=== PATIENT | female | born 1975 | race Asian ===

== ENCOUNTER 2020-04-09 14:11 | Emergency (ER) | payer OTHER, SELFPAY ==
[2020-04-09 14:15] VITALS: BP 108/75; PULSE 100; RESP 18; TEMP 36.9; O2SAT 97
--- NOTE | 2020-04-09 14:41 | ED.SKABFB ---
HPI - Skin/Abscess/Foreign Bdy General Chief complaint: Skin/Abscess/Foreign Body Stated complaint: boil on back Time Seen by Provider: 04/09/20 14:29 Source: patient and RN notes reviewed Mode of arrival: ambulatory Limitations: no limitations History of Present Illness HPI narrative: Patient presents today complaining of swelling and possible boil to her left upper back x1 week. Reports it continues to worsen and is very painful. She rates her pain 8/10 and has been using Prid salve without relief. Last episode of the boil/abscess was in May 2019 where she was seen in the ER at [facility]. complaint: abscess/boil Related Data Home Medications Medication Instructions Recorded Confirmed fluoxetine 10 mg PO DAILY 05/10/19 04/09/20 lisinopril 10 mg PO DAILY 05/10/19 04/09/20 valacyclovir 500 mg PO DAILY 05/10/19 04/09/20 amitriptyline 25 mg PO BID 04/09/20 04/09/20 atorvastatin 10 mg PO DAILY 04/09/20 04/09/20 bupropion HCl 300 mg PO DAILY 04/09/20 04/09/20 citalopram 20 mg PO DAILY 04/09/20 04/09/20 losartan 50 mg PO DAILY 04/09/20 04/09/20 montelukast 10 mg PO DAILY 04/09/20 04/09/20 sertraline 50 mg PO DAILY 04/09/20 04/09/20 sumatriptan succinate 100 mg PO USEASDIRECTD 04/09/20 04/09/20 topiramate 25 mg PO DAILY 04/09/20 04/09/20 Allergies Allergy/AdvReac Type Severity Reaction Status Date / Time vitamin B 12 Allergy Hives Uncoded 04/09/20 14:33 Review of Systems Review of Systems: Narrative: CONSTITUTIONAL: Denies body aches, fever, chills, or sweats. EYES: Denies visual changes, redness, or discharge. ENT: Denies rhinorrhea, congestion, sore throat, or otalgia. CARDIOVASCULAR: Denies chest pain, palpitations, or edema. RESPIRATORY: Denies cough or dyspnea. GASTROINTESTINAL: Denies abdominal pain, nausea, vomiting, or diarrhea. GENITOURINARY: Denies dysuria or hematuria. SKIN: Denies rash, itching. + Boil to left upper back MUSCULOSKELETAL: Denies back pain, joint pain, or myalgia. NEUROLOGIC: Denies headache, numbness, tingling, or weakness. PSYCH: Denies depression or anxiety. [facility] Past Medical History Medical History (Updated 04/09/20 @ 14:44 by Kristy Cadena, YONG, ) HTN (hypertension) Hypercholesterolemia Surgical History Surgical History (Updated 05/10/19 @ 15:14 by YONG Abdi) Status post surgical removal of both fallopian tubes Social History Social History (Updated 05/10/19 @ 15:14 by YONG Abdi) Smoking status: Never smoker Alcohol intake: never Substance use: never Comments At time of signature, I have reviewed and agree with nursing past medical, surgical, social and family history unless otherwise noted. Please see nursing chart for further information. There is no relevant family history pertinent to the presenting complaint Exam Narrative: Exam Narrative: GENERAL: Well-appearing, well-nourished, and in no acute distress. HEAD: Normocephalic, atraumatic. EYES: EOMI. No redness or drainage. Conjunctivae normal. ENT: Mucous membranes pink and moist. NECK: Normal AROM. CHEST: No respiratory distress. EXTREMITIES: Normal range of motion. No edema. SKIN: Warm, dry, no rash. Capillary refill normal. Normal skin turgor. 4 cm area of erythema and induration to the left upper back with 1 to 2 mm scab in the center. Tender to palpation. Manually removed scab and expressed pinpoint amount of purulent discharge. Dressed with Band-Aid. NEURO: No focal deficits. Alert and oriented x3. Gait steady. PSYCH: Normal affect. No signs of depression or anxiety. Course Vital Signs Vital signs: Vital Signs Temperature 98.4 F 04/09/20 14:15 Pulse Rate 100 04/09/20 14:15 Respiratory Rate 18 04/09/20 14:15 Blood Pressure 108/75 04/09/20 14:15 Pulse Oximetry 97 04/09/20 14:15 Temperature 98.4 F 04/09/20 14:15 Pulse Rate 100 04/09/20 14:15 Respiratory Rate 18 04/09/20 14:15 Blood Pressure 108/75 04/09
== END 2020-04-09 14:50 | disposition home or self-care (01) ==
PROVIDERS: Emergency Provider Nurse Practitioner; PCP Family Medicine
DX: L03.312 Cellulitis of back [any part except buttock and flank] (principal); I10 Essential (primary) hypertension; E78.00 Pure hypercholesterolemia, unspecified
CPT/HCPCS: 99213; G0463

== ENCOUNTER 2020-05-09 11:05 | Emergency (ER) | payer OTHER, SELFPAY ==
[2020-05-09 11:34] VITALS: BP 110/75; PULSE 65; RESP 20; TEMP 36.6; O2SAT 100
--- NOTE | 2020-05-09 11:52 | ED.GENADULT ---
HPI - General Adult General Chief complaint: Ear Stated complaint: ear pain Source: patient Mode of arrival: ambulatory Limitations: no limitations History of Present Illness HPI narrative: 44 y/o female Presents to the [facility] clinic today with acute complaints of LT ear pain, more bothersome in the past 48 hours. She describes a throbbing and popping sensation. No auditory trauma or loss. No fever, chills. No congestion. Pt reports subtherapeutic relief to OTC remedies. No additional acute c/o upon PE. Related Data Home Medications Medication Instructions Recorded Confirmed valacyclovir 500 mg PO DAILY 05/10/19 05/09/20 amitriptyline 25 mg PO BID 04/09/20 05/09/20 atorvastatin 10 mg PO DAILY 04/09/20 05/09/20 bupropion HCl 300 mg PO DAILY 04/09/20 05/09/20 citalopram 20 mg PO DAILY 04/09/20 05/09/20 losartan 50 mg PO DAILY 04/09/20 05/09/20 topiramate 25 mg PO BID 04/09/20 05/09/20 propranolol 40 mg PO BID 05/09/20 05/09/20 Allergies Allergy/AdvReac Type Severity Reaction Status Date / Time vitamin B 12 Allergy Hives Uncoded 05/09/20 11:43 Review of Systems Review of Systems: Narrative: CONSTITUTIONAL: Denies fever, chills, sweats. EYES: Denies visual changes, redness, discharge. ENT: Denies rhinorrhea, congestion, sore throat. Positive LT otalgia. CARDIOVASCULAR: Denies chest pain, palpitations, edema. RESPIRATORY: Denies dyspnea, wheezing, cough GASTROINTESTINAL: Denies abdominal pain, nausea, vomiting, diarrhea. GENITOURINARY: Denies dysuria, hematuria, abnormal discharge SKIN: Denies rash or itching. MUSCULOSKELETAL: Denies acute back pain, joint pain, or myalgia. NEUROLOGIC: Denies numbness, or focal weakness. PSYCHIATRIC: Denies anxiety or depression. All systems reviewed & are unremarkable except as noted in HPI and below (HPI. ) [facility] Past Medical History Medical History HTN (hypertension) Hypercholesterolemia Surgical History Surgical History Status post surgical removal of both fallopian tubes Social History Social History Smoking status: Never smoker Alcohol intake: never Substance use: never Comments At the time of my signature I agree with nursing past medical history, surgical, social, and family history. There is no relevant family history pertinent to the presenting complaint. Exam Narrative: Exam Narrative: GENERAL: This is a well-nourished, well-developed patient, in no apparent distress. HEAD: normocephalic, atraumatic. EYES: PERRL. Sclera clear/white. Vision is grossly intact. EARS: External ears normal. LT TM bulging and erythematous, without perforation. Positive Tragus manipulation LT. Hearing grossly intact. RT normal. NOSE: External nose normal with no obvious nasal discharge, nares without redness, no rhinorrhea. THROAT: Mucous membranes moist, posterior pharynx clear. NECK: Neck supple, non-tender without lymphadenopathy, masses or thyromegaly. CARDIOVASCULAR: Regular rate and rhythm without murmurs, gallops, or rubs. RESPIRATORY: Clear to auscultation. Breath sounds equal bilaterally. No wheezes, rales, or rhonchi. GASTROINTESTINAL: Abdomen soft, non-tender, nondistended. Bowel sounds are active. No hepato-splenomegaly, or palpable masses. No guarding. SKIN: warm, intact with no suspicious lesions or rash, good texture and turgor. NEURO: awake, alert, and oriented to person, place and time. There were no obvious focal neurologic abnormalities. Steady gait EXTREMITIES: Normal range of motion. No edema. No calf tenderness. Negative Homans sign bilaterally. BACK: Nontender without deformity or crepitance. No flank tenderness. Course Vital Signs Vital signs: Vital Signs Temperature 36.6 C 05/09/20 11:34 Pulse Rate 65 05/09/20 11:34 Respiratory Rate 20 05/09/20 11:34 Blood Press
== END 2020-05-09 12:00 | disposition home or self-care (01) ==
PROVIDERS: Emergency Provider Nurse Practitioner Adult Health; PCP Family Medicine
DX: H66.92 Otitis media, unspecified, left ear (principal); I10 Essential (primary) hypertension; E78.00 Pure hypercholesterolemia, unspecified
CPT/HCPCS: 99213; G0463

== ENCOUNTER 2021-11-02 00:38 | Day surgery (SDC) | payer OTHER, SELFPAY ==
[2021-10-26 09:53] VITALS: BMI 34.4
--- NOTE | 2021-10-26 10:53 | SUR.PREOP ---
Report to the Outpatient Waiting Room, entrance under the green pavilion located off [facility], at time 0800 on date 11/02/21. OR Time: 1000. - You and your visitor will be asked a series of questions to screen for COVID 19 for your protection. - Only one visitor is allowed at this time. - The patient visitor is requested to leave or wait in car when not with patient. - A mask is required within the hospital. Patients may have clear liquids (water, carbonated beverages, clear teas, apple juice) until 3 hours prior to surgery with a maximum of 20 ounces. - No food from midnight until time of surgery - Infants may have breast milk until 4 hours before surgery, infant formula 6 hours prior to surgery. - Children will be allowed to drink immediately following surgery. If applicable, please bring a bottle or sippy cup to assist with drinking. Juice, water, soda, and popsicles are readily available. For infants on formula, please bring formula the day of surgery. Pacifiers are allowed. Take the following medications with a SIP of water the morning of surgery: PROPRANOLOL, BUPROPION, CITALOPRAM Medications to discontinue per physician N/A Date to take last dose N/A Please no make-up, nail kazakh, hairspray, perfume, deodorant, or body powder the day of surgery. No jewelry (including any body piercings) or valuables the day of surgery, leave them at home. Please take a shower or bath the night before, or the morning of, surgery with an antibacterial soap. Wear comfortable, loose fitting clothing. Children are encouraged to wear pajamas. - Jewelry must be removed prior to entering the operating room. Rings and piercings that are not removed may be cut off. - The hospital will not accept responsibility for valuables. - Please leave all valuables, including medications, at home the day of surgery. If you are going home after surgery, a licensed stage driver must drive you home. - NO public transportation without another adult. - We recommend that an adult stay with you for 24 hours following discharge. - We also recommend that you do not drive, make important decision, drink alcoholic beverages, or take any drugs that were not prescribed by your health care provider for at least 24 hours after your discharge time. For Pediatric surgeries, we recommend two adults accompany the child home (only one inside the building at this time). Follow any additional instructions given to you from your surgeon. If you or anyone in your household have experienced Covid symptoms in the past week, please notify your surgeon or the nurse liaison at the phone number below for possible testing. Telephone instructions given to DWIGHT ESTRELLA and asked if any additional questions and then verbalized understanding. Patient advised to call surgeon office or pre surgery nurse liaison [phone] if any additional questions.
[2021-11-02 08:03] VITALS: BP 116/71; PULSE 63; RESP 16; TEMP 36.7; O2SAT 97
[2021-11-02] MEDS: LACTATED RINGERS 1,000 ML 30 ML IV CONT (08:25)
--- NOTE | 2021-11-02 08:28 | WPDANESEPPF ---
Anes - Initial Pre Proc Eval Procedure: Operation Date: 11/02/21 10:00 Proposed Procedures p Hysteroscopy Dilation and Curettage - Leoncio Hammond MD Date/Time: 11/02/21 08:28 Surgeon: Leoncio Hammond MD Pre Op Diagnosis: Menometrorrhagia Patient Data Age: 46 Gender: F Height: 1.68 m Weight: 97.3 kg Allergies Allergy/AdvReac Type Severity Reaction Status Date / Time vitamin B 12 Allergy Intermediate Hives Uncoded 11/02/21 08:13 Home Medications Medication Instructions Recorded Confirmed Type valacyclovir 500 mg tablet 500 mg PO DAILY 05/10/19 11/02/21 History atorvastatin 10 mg tablet 10 mg PO DAILY 04/09/20 11/02/21 History bupropion HCl 300 mg 24 hr tablet, 300 mg PO DAILY 04/09/20 11/02/21 History extended release citalopram 20 mg tablet 20 mg PO DAILY 04/09/20 11/02/21 History propranolol 40 mg tablet 40 mg PO BID 05/09/20 11/02/21 History Patient hx anesthesia problems: none Family hx anesthesia problems: none Results Review: All pre-operative results and documents have been reviewed as part of the pre-operative evaluation. 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 Gender identity (if verbalized by the patient): Female Sexual Orientation (if Verbalized by the Patient): Straight or Heterosexual Spiritual care concerns: No Anes - Eval Final PreProcedure Day of Procedure 11/02/21 08:28 Patient weight: obese Heart: regular rate and rhythm Lungs: clear to auscultation Airway: Mallampati scale class II Neurological: alert and oriented Last oral intake: >/= 8 hours ASA classification: III Anesthetic plan: proceed Anesthesia type and monitoring: general LMA and standard monitoring Results Review: All pre-operative results and documents have been reviewed as part of the pre-operative evaluation. Informed Consent: The patient's anesthetic plan and its attendant risks and benefits were discussed with the patient/family/POA. Questions were solicited and answers provided to the satisfaction of the patient/family/POA.
--- NOTE | 2021-11-02 08:35 | PM.IMHP ---
H&P: HPI History of Present Illness Date/Time: 11/02/21 08:35 46-year-old female presents for evaluation of heavy irregular vaginal bleeding and thickened endometrium found on ultrasound. Was in her normal state of health until approximately 6 months ago when she began to have heavy irregular vaginal bleeding and ultrasound was ordered to evaluate this. Ultrasound revealed essentially normal uterus with endometrium of 15mm. Due to this we need to proceed with hysteroscopy and D&C to determine tissue and then decide definitive course. Chief Complaint: Menometrorrhagia/endometrial hypertrophy. Review of Systems Review of Systems: All systems reviewed & are unremarkable except as noted in HPI and below PMFSH Past Medical History Medical History Anxiety Encounter for screening examination for sexually transmitted disease History of PCR DNA positive for HSV2 HTN (hypertension) Hypercholesterolemia Surgical History Surgical History Status post surgical removal of both fallopian tubes Family History Family History Other Adopted Social History Social History Smoking status: Never smoker Alcohol intake: never Substance use: never Substance use type: does not use Living arrangements: alone Additional living arrangements comments: 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 Gender identity (if verbalized by the patient): Female Sexual Orientation (if Verbalized by the Patient): Straight or Heterosexual Spiritual care concerns: No Meds Home Medications and Allergies Home Medications Medication Instructions Recorded Confirmed Type valacyclovir 500 mg tablet 500 mg PO DAILY 05/10/19 11/02/21 History atorvastatin 10 mg tablet 10 mg PO DAILY 04/09/20 11/02/21 History bupropion HCl 300 mg 24 hr tablet, 300 mg PO DAILY 04/09/20 11/02/21 History extended release citalopram 20 mg tablet 20 mg PO DAILY 04/09/20 11/02/21 History propranolol 40 mg tablet 40 mg PO BID 05/09/20 11/02/21 History Allergies Allergy/AdvReac Type Severity Reaction Status Date / Time vitamin B 12 Allergy Intermediate Hives Uncoded 11/02/21 08:13 Vital Signs Vital Signs - 24 hr 11/02/21 08:03 Temperature 98.1 F Pulse Rate 63 Respiratory Rate 16 Blood Pressure 116/71 Pulse Oximetry 97 Oxygen Delivery Room Air Exam Const: General: cooperative, healthy appearing and comfortable Resp: Effort & Inspection: normal respiratory effort Auscultation: clear to auscultation bilaterally Cardio: Rate: regular rate Rhythm: regular rhythm GI: Inspection: normal to inspection Auscultation: normal bowel sounds : External Female Exam: normal external appearance Speculum Exam - Vagina: normal appearance of the vagina Speculum Exam - Cervix: normal appearance of the cervix Bimanual exam- vagina & uterus: enlarged (8-10 week size mildly tender) Bimanual Exam- Adnexa, other: normal adnexae Assessment and Plan Assessment and plan (1) Menometrorrhagia: Code(s): N92.1 - Excessive and frequent menstruation with irregular cycle Status: Acute Assessment and Plan: Hysteroscopy with uterine curettings (2) Thickened endometrium: Code(s): R93.89 - Abnormal findings on diagnostic imaging of other specified body structures Status: Acute
--- NOTE | 2021-11-02 08:39 | WPDHPUPDATE1 ---
History and Physical Update Update Date/Time: 11/02/21 08:39 History and Physical has been reviewed, including an updated exam of the patient. There are NO changes in the patient's condition. Risks, benefits, and alternatives have been discussed and questions answered. Patient agrees to proceed with procedure.
[2021-11-02] MEDS: KETOROLAC 30 MG/ML VIAL (*BKC) IV PUSH (09:40)
--- NOTE | 2021-11-02 09:43 | W.PM.PROC2 ---
Procedure Note - Detailed Date of Procedure 11/02/21 Pre-op Diagnosis Menometrorrhagia Post-op Diagnosis Same Procedure Performed Hysteroscopy with uterine curettings Surgeon Leoncio Hammond MD Findings Thickened endometrial cavity. Small polyp noted. Description of Procedure Patient prepped in usual manner for this procedure. Cervix dilated to allow the hysteroscope be placed which did reveal findings as noted above. Curettings were obtained and cavity was without abnormality after the procedure. Patient was then sent to recovery room stable condition. Estimated Blood Loss 25 Drains No Packing No Pathology Yes Complications No immediate complications Condition Stable Disposition PACU [facility] Billing Surgery - Charge Forward: Surgery Billing
[2021-11-02 09:48] VITALS: BP 122/68; PULSE 56; RESP 14; O2SAT 96
[2021-11-02 10:15] VITALS: BP 121/83; PULSE 54; RESP 14
[2021-11-02 10:45] VITALS: BP 137/73; PULSE 52; RESP 14
== END 2021-11-02 11:07 | disposition home or self-care (01) ==
PROVIDERS: PCP Family Medicine; Visit Provider Obstetrics & Gynecology
PROC: 0U5B8ZZ Destruction of Endometrium, Via Natural or Artificial Opening Endoscopic (ICD-10-PCS; CPT 58563; principal; 2021-11-02 10:00)
DX: N92.1 Excessive and frequent menstruation with irregular cycle (principal); I10 Essential (primary) hypertension; E78.00 Pure hypercholesterolemia, unspecified; B00.9 Herpesviral infection, unspecified; F41.9 Anxiety disorder, unspecified; E66.9 Obesity, unspecified; Z68.34 Body mass index [BMI] 34.0-34.9, adult
CPT/HCPCS: 58558; 88305; A9270; J1885; J2250; J2704; J3010; J7030; J7120

== ENCOUNTER 2022-03-08 00:11 | Day surgery (SDC) | payer OTHER, SELFPAY ==
[2022-03-01 09:45] VITALS: BMI 34.2
--- NOTE | 2022-03-01 09:59 | PC.NURSE ---
Report to the Outpatient Waiting Room, entrance under the green pavilion located off [facility], at time 0800 on date 03/08/22. OR Time: 1000. Time changes happen often and if your time is changed the preop area will call you the afternoon before. - You and your visitor will be asked to self-screen and do not enter if you have any COVID symptoms. - Only one visitor and NO children visitors are allowed at this time. - The patient visitor is requested to leave or wait in car when not with patient due to restrictions. - A mask is required within the hospital. Patients may have clear liquids (water, carbonated beverages, clear teas, apple juice) until 3 hours prior to surgery with a maximum of 20 ounces 0700. - No food from midnight until time of surgery - Infants may have breast milk until 4 hours before surgery, infant formula 6 hours prior to surgery. - Children will be allowed to drink immediately following surgery. If applicable, please bring a bottle or sippy cup to assist with drinking. Juice, water, soda, and popsicles are readily available. For infants on formula, please bring formula the day of surgery. Pacifiers are allowed. Take the following medications with a SIP of water the morning of surgery: atorvastatin, bupropion, citalopram, propranolol, albuterol sulfate Medications to discontinue per physician ask Dr. Hammond about discontinuing ibuprofen prior to surgery Date to take last dose n/a Please no make-up, nail arabic, hairspray, perfume, deodorant, or body powder the day of surgery. No jewelry (including any body piercings) or valuables the day of surgery, leave them at home. Please take a shower or bath the night before, or the morning of, surgery with an antibacterial soap. Wear comfortable, loose fitting clothing. Children are encouraged to wear pajamas. - Jewelry must be removed prior to entering the operating room. Rings and piercings that are not removed may be cut off. - The hospital will not accept responsibility for valuables. - Please leave all valuables, including medications, at home the day of surgery. If you are going home after surgery, a licensed class a truck driver must drive you home. - NO public transportation without another adult. - We recommend that an adult stay with you for 24 hours following discharge. - We also recommend that you do not drive, make important decision, drink alcoholic beverages, or take any drugs that were not prescribed by your health care provider for at least 24 hours after your discharge time. For Pediatric surgeries, we recommend two adults accompany the child home (only one inside the building at this time). Follow any additional instructions given to you from your surgeon. If you or anyone in your household have experienced Covid symptoms in the past week, please notify your surgeon or the nurse liaison at the phone number below for possible testing. Telephone instructions given to Iraida Winter and asked if any additional questions and then verbalized understanding. Patient advised to call surgeon office or pre surgery nurse liaison [phone] if any additional questions.
--- NOTE | 2022-03-08 07:28 | PM.IMHP ---
H&P: HPI History of Present Illness Date/Time: 03/08/22 07:28 46-year-old female presents with complaints of menstrual cycles 5-7 days with 3-5 days heavy clotting cramping. She has had a hysteroscopy D&C in the last few months was did reveal polyps and they were removed. Since this has occurred she has continued with heavy bleeding and desires further treatment. We have discussed multiple options and she desires to proceed with endometrial ablation. Has had a tubal ligation so this is not necessary. Chief Complaint: Menometrorrhagia Review of Systems Review of Systems: All systems reviewed & are unremarkable except as noted in HPI and below PMFSH Past Medical History Medical History Anxiety Encounter for screening examination for sexually transmitted disease History of PCR DNA positive for HSV2 HTN (hypertension) Hypercholesterolemia Surgical History Surgical History History of hysteroscopy (11/02/21) Hscope D&C Status post surgical removal of both fallopian tubes Family History Family History Other Adopted Social History Social History Smoking status: Never smoker Alcohol intake: never Substance use: never Substance use type: does not use Living arrangements: with roommate(s) Additional living arrangements comments: 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 Gender identity (if verbalized by the patient): Female Sexual Orientation (if Verbalized by the Patient): Straight or Heterosexual Spiritual care concerns: No Meds Home Medications and Allergies Home Medications Medication Instructions Recorded Confirmed Type valacyclovir 500 mg tablet 500 mg PO DAILY PRN herpes 05/10/19 03/01/22 History atorvastatin 10 mg tablet 10 mg PO DAILY 04/09/20 03/01/22 History bupropion HCl 300 mg 24 hr tablet, 300 mg PO DAILY 04/09/20 03/01/22 History extended release citalopram 20 mg tablet 20 mg PO DAILY 04/09/20 03/01/22 History propranolol 40 mg tablet 40 mg PO BID 05/09/20 03/01/22 History ibuprofen 800 mg tablet 800 mg PO TID PRN pain #20 tabs 06/02/22 09/29/22 Rx albuterol sulfate 90 mcg/actuation 2 puff inhalation DAILY 03/01/22 03/01/22 History aerosol inhaler Allergies Allergy/AdvReac Type Severity Reaction Status Date / Time vitamin B 12 Allergy Intermediate Hives Uncoded 03/01/22 09:39 Exam Const: General: cooperative, healthy appearing and comfortable Resp: Effort & Inspection: normal respiratory effort Auscultation: clear to auscultation bilaterally Cardio: Rate: regular rate Rhythm: regular rhythm GI: Inspection: normal to inspection Auscultation: normal bowel sounds : External Female Exam: normal external appearance Speculum Exam - Vagina: normal appearance of the vagina Speculum Exam - Cervix: normal appearance of the cervix Bimanual exam- vagina & uterus: enlarged Bimanual Exam- Adnexa, other: normal adnexae Assessment and Plan Assessment and plan (1) Menometrorrhagia: Code(s): N92.1 - Excessive and frequent menstruation with irregular cycle Status: Acute Assessment and Plan: Proceed with hysteroscopy and endometrial ablation.
--- NOTE | 2022-03-08 07:33 | WPDHPUPDATE1 ---
History and Physical Update Update Date/Time: 03/08/22 07:33 History and Physical has been reviewed, including an updated exam of the patient. There are NO changes in the patient's condition. Risks, benefits, and alternatives have been discussed and questions answered. Patient agrees to proceed with procedure.
[2022-03-08] MEDS: LACTATED RINGERS 1,000 ML 30 ML IV CONT (08:35)
[2022-03-08] MEDS: ACETAMINOPHEN 500 MG TABLET 1000 MG PO (08:35)
[2022-03-08 08:41] VITALS: BP 133/75; PULSE 53; RESP 14; TEMP 36; O2SAT 97
--- NOTE | 2022-03-08 09:14 | WPDANESEPPF ---
Anes - Initial Pre Proc Eval Procedure: Operation Date: 03/08/22 09:30 Proposed Procedures p Hysteroscopy with Addie Endometrial Ablation - Leoncio Hammond MD Date/Time: 03/08/22 09:14 Surgeon: Leoncio Hammond MD Pre Op Diagnosis: menometrorrhagia Patient Data Age: 46 Gender: F Height: 1.68 m Weight: 96.5 kg Last Vital Signs Temp 36.0 C L 03/08/22 08:41 Pulse 53 L 03/08/22 08:41 Resp 14 03/08/22 08:41 BP 133/75 03/08/22 08:41 Pulse Ox 97 03/08/22 08:41 O2 Del Method Room Air 03/08/22 08:41 Allergies Allergy/AdvReac Type Severity Reaction Status Date / Time vitamin B 12 Allergy Intermediate Hives Uncoded 03/08/22 08:35 Home Medications Medication Instructions Recorded Confirmed Type valacyclovir 500 mg tablet 500 mg PO DAILY PRN herpes 05/10/19 03/01/22 History atorvastatin 10 mg tablet 10 mg PO DAILY 04/09/20 03/01/22 History bupropion HCl 300 mg 24 hr tablet, 300 mg PO DAILY 04/09/20 03/01/22 History extended release citalopram 20 mg tablet 20 mg PO DAILY 04/09/20 03/01/22 History propranolol 40 mg tablet 40 mg PO BID 05/09/20 03/01/22 History ibuprofen 800 mg tablet 800 mg PO TID PRN pain #20 tabs 11/02/21 03/01/22 Rx albuterol sulfate 90 mcg/actuation 2 puff inhalation DAILY 03/01/22 03/01/22 History aerosol inhaler Patient hx anesthesia problems: none Family hx anesthesia problems: none Results Review: All pre-operative results and documents have been reviewed as part of the pre-operative evaluation. [facility] Past Medical History Medical History Anxiety Encounter for screening examination for sexually transmitted disease History of PCR DNA positive for HSV2 HTN (hypertension) Hx of migraines Hypercholesterolemia Surgical History Surgical History History of hysteroscopy (11/02/21) Hscope D&C Status post surgical removal of both fallopian tubes Family History Family History Other Adopted Social History Social History Smoking status: Never smoker Alcohol intake: never Substance use: never Substance use type: does not use Living arrangements: with roommate(s) Additional living arrangements comments: 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 Gender identity (if verbalized by the patient): Female Sexual Orientation (if Verbalized by the Patient): Straight or Heterosexual Spiritual care concerns: No Anes - Eval Final PreProcedure Day of Procedure 03/08/22 09:14 Patient weight: obese Heart: regular rate and rhythm Lungs: clear to auscultation Airway: Mallampati scale class II Neurological: alert and oriented Last oral intake: >/= 8 hours ASA classification: III Emergent: no Anesthetic plan: proceed Anesthesia type and monitoring: general GIVS and standard monitoring Results Review: All pre-operative results and documents have been reviewed as part of the pre-operative evaluation. Informed Consent: The patient's anesthetic plan and its attendant risks and benefits were discussed with the patient/family/POA. Questions were solicited and answers provided to the satisfaction of the patient/family/POA.
[2022-03-08] MEDS: ceFAZolin 2 GM/D5W 50 ML 2 GM/50 ML BAG IVPB (09:54)
--- NOTE | 2022-03-08 10:13 | P.OP_ITS ---
Procedure Note - Detailed Date of Procedure 03/08/22 Pre-op Diagnosis menometrorrhagia Post-op Diagnosis Same Procedure Performed Hysteroscopic endometrial ablation Surgeon Leoncio Hammond MD Anesthesia MAC Findings Mildly thickened endometrial cavity Description of Procedure Patient prepped draped usual manner for this procedure. Cervix was dilated to allow the hysteroscope placed which did reveal no significant abnormalities. Endometrial ablation instrument was placed cavity assessment was performed and instrument was activated. At the end of the procedure hysteroscopic exam revealed good destruction throughout. At this point the procedure was cons idered terminated the patient was sent to recovery room in stable condition. Estimated Blood Loss 20 Drains No Packing No Pathology None sent Complications No immediate complications Condition Stable Disposition PACU [facility] Billing Surgery - Charge Forward: Surgery Billing
[2022-03-08 10:18] VITALS: BP 109/64; PULSE 55; RESP 12; O2SAT 97
[2022-03-08 10:35] VITALS: BP 124/71; PULSE 54; RESP 12; O2SAT 12
[2022-03-08 11:05] VITALS: BP 108/65; PULSE 53; RESP 20
[2022-03-08 11:25] VITALS: BP 123/67; PULSE 51; RESP 20
== END 2022-03-08 11:40 | disposition home or self-care (01) ==
PROVIDERS: PCP Family Medicine; Visit Provider Obstetrics & Gynecology
PROC: 0U5B8ZZ Destruction of Endometrium, Via Natural or Artificial Opening Endoscopic (ICD-10-PCS; CPT 58563; principal; 2022-03-08 09:30)
DX: N92.1 Excessive and frequent menstruation with irregular cycle (principal); I10 Essential (primary) hypertension; E78.00 Pure hypercholesterolemia, unspecified
CPT/HCPCS: 58563; A9270; J0690; J1885; J2250; J2704; J3010; J7030; J7120

== ENCOUNTER 2022-06-06 17:15 | Emergency (ER) | payer OTHER, SELFPAY ==
[2022-06-06 17:27] VITALS: BP 138/93; PULSE 65; RESP 18; TEMP 36.8; O2SAT 100
[2022-06-06 17:51] LABS: Basophils Absolute Auto 0.1 K/mm3 (0.0-0.1); Basophils Percent Auto 0.7 % (0.2-1.2); Eosinophils Absolute Auto 0.6 K/mm3 (0-0.3); Eosinophils Percent Auto 5.4 % (0-4.4); Hematocrit 37.5 % (37.0-47.0); Hemoglobin 12.9 g/dL (12.0-15.0); Immature Granulocyte Absolute 0.02 K/mm3 (0.00-0.031); Immature Granulocyte Percent A 0.2 % (0-0.5); Lymphocytes Percent Auto 34.7 % (18.3-44.2); Mean Corpuscular HGB Conc 34.4 g/dl (32-36); Mean Corpuscular Hemoglobin 33.3 pg (26-34); Mean Corpuscular Volume 96.9 fl (80-100); Mean Platelet Volume 9.9 fl (7.4-10.4); Monocytes Absolute Auto 0.6 K/mm3 (0.1-0.6); Neutrophils Absolute Auto 5.4 K/mm3 (1.3-6.7); Platelet Count Result 321 k/mm3 (150-375); Red Blood Count 3.87 M/mm3 (4.2-5.4); White Blood Count 10.1 K/mm3 (4.5-10.0)
[2022-06-06 17:59] LABS: Alanine Aminotransferase 23 U/L (6-35); Albumin Level 4.1 g/dL (3.5-5.1); Alkaline Phosphatase 71 U/L (38-126); Anion Gap 4 mmol/L (8-16); Aspartate Amino Transferase 28 U/L (14-36); Bilirubin,Total 0.7 mg/dL (0.2-1.3); Blood Urea Nitrogen 9 mg/dL (7-17); Calcium 8.8 mg/dL (8.4-10.2); Carbon Dioxide 29 mmol/L (22-30); Chloride 100 mmol/L (98-107); Estimated CRCL calculation 103 ml/min; Estimated Glomerular Filt Rate > 60; Glucose 100 mg/dL (65-110); Lipase 122 U/L (23-300); Potassium 4.2 mmol/L (3.4-5.0); Sodium 133 mmol/L (137-145)
[2022-06-06 18:52] LABS: Add Urine Microscopic? YES; Appearance Urine Clear (Clear); Bilirubin Urine Negative (Negative); Blood Urine Trace-Intact (Negative); Color Urine Yellow (Yellow); Glucose Urine UA Negative (Negative); Ketones Urine Negative (Negative); Leukocyte Esterase Ur Negative LEU/UL (Negative); Nitrate Urine Negative (Negative); Protein Urine Negative (Negative); Specific Grav Ur <= 1.005 (1.001-1.035); Urobilinogen Urine 0.2 mg/dL (<2.0)
[2022-06-06 19:14] LABS: Bacteria Urine Trace /hpf; RBC Urine 0-2 /hpf (0-2); Squamous Epithelial Cell Urine Many /hpf (Few); WBC Urine 0-3 /hpf
--- NOTE | 2022-06-06 20:14 | PC.NURSE ---
pt left before seeing provider. pt A&Ox4 states she is leaving and is tired of waiting. pt ambulated from er without difficulty.
== END 2022-06-07 03:22 | disposition left against medical advice (07) ==
PROVIDERS: Emergency Provider Emergency Medicine; PCP Family Medicine
DX: R10.9 Unspecified abdominal pain (principal)
CPT/HCPCS: 36415; 80053; 81001; 83690; 85025; 99199

== ENCOUNTER 2024-07-14 08:28 | Outpatient (CLI) | payer OTHER, SELFPAY ==
--- NOTE | 2024-07-14 08:30 | ECG_ITS ---
Test Date: 2024-07-14 09:00:28 Measurements Intervals [place] Rate: 67 P: 20 CA: 182 QRS: -3 QRSD: 102 T: -1 QT: 404 QTc: 428 Interpretive Statements SINUS RHYTHM LOW QRS VOLTAGE IN PRECORDIAL LEADS INCOMPLETE RIGHT BUNDLE BRANCH BLOCK BORDERLINE ST-T WAVE ABNORMALITY- ANTEROLAT/INF LEADS BASELINE ARTIFACT- I, III, AVR, AVL, AVF BORDERLINE ECG No previous ECG available for comparison Electronically Signed On 07-14-2024 09:03:53 DRAPERY MAKER by Jeramy Dias D.O.
--- OUTSIDE RECORDS SUMMARY | 2024-07-14 09:15 | XMS_ITS | Clinical Summary ---
Author Organization [facility] Address [address] [place] [address] Phone Care Team Providers Care [place] Name Role Phone Jermaine Yi MD Primary Care Provider Charlene Mares DPM Unavailable [phone] Allergies Active Allergy Reactions Criticality Noted Date Comments Folic Acid-Vit B6-Vit B12 Hives 12/08/2018 Latex Hives 04/29/2023 Medications meclizine (ANTIVERT) 25 MG Tablet Take 25 mg by mouth 3 times daily as needed. 8 Active valACYclovir (VALTREX) 500 MG Tablet Take 500 mg by mouth as needed. 9 Active diclofenac (CATAFLAM) 50 MG Tablet Take 50 mg by mouth 2 times daily. Active Hydrocortisone Piyush-Pramoxine (ANALPRAM-HC) 1-1 % Cream 1 Applicator by Rectal route every 12 hours. 1 Tube 9 Active polyethylene glycol (MIRALAX) Powder Take 17 g by mouth daily. 17 g = 1 scoop. Dissolve in 4 -8 oz of water or other liquid. 1 Bottle 9 Active cyclobenzaprine (FLEXERIL) 10 MG Tablet Take 0.5 Tabs by mouth 3 times daily as needed for Muscle spasms. 15 Tab 9 Active atorvastatin (LIPITOR) 10 MG Tablet Take 10 mg by mouth daily. 3 Active buPROPion (WELLBUTRIN) 300 MG TABLET SR 24 HR XL tablet TAKE 1 TABLET BY MOUTH EVERY DAY IN THE MORNING 3 Active propranolol (INDERAL) 40 MG Tablet Take 40 mg by mouth 2 times daily. Taking only 1 tablet daily due to low BP 3 Active citalopram (CeleXA) 20 MG Tablet Take 20 mg by mouth nightly. Active traZODone (DESYREL) 25 mg Tablet Take 25 mg by mouth nightly. Active HYDROcodone-piyush taminophen (NORCO) 10-325 MG TabletIndicatio ns:Bone tumor Take 1 Tablet by mouth every 4 hours as needed for Moderate or more severe pain. 40 Tablet 3 Active polyethylene glycol (MiraLax) 17 g Pack Take 1 Packet by mouth daily. Dissolve in 4-8 oz of liquid. 90 Packet 3 Active Hydrocortisone, Perianal, (Anusol-HC) 2.5 % Cream Apply daily. Apply to rectum as directed. 28 g 3 Active Active Problems Problem Noted Date Diagnosed Date Chronic midline low back pain without sciatica 0 12/08/2018 Numbness of left lower extremity 12/08/2018 Lumbar facet arthropathy 12/08/2018 Encounters Date Type Department Care Team Description 05/20/2024 Telephone [facility] - G[facility]enter[facility] [address] [place] [address] Victorina Rendon APRN, MALT ROASTER from Last 3 Months Immunizations Immunization Administration Dates Next Due TB Skin Test 10/21/2021 Family History Relation Name Status Comments Father Other Mother Other Social History Tobacco Use Types Packs/Day Years Used Date Smoking Tobacco: Never Smokeless Tobacco: Never Alcohol Use Standard Drinks/Week Comments Not Currently 0 (1 standard drink = 0.6 oz pur e alcohol) AUDIT-C Answer Date Recorded Frequency of Alcohol Consumption Never 03/09/2019 Average Number of Drinks Not on file 019 Frequency of Binge Drinking Not on file 12/2018 Comments No Sex and Gender Information Value Date Recorded Sex Assigned at Female 04/29/2023 9:17 PM CONTRACT NEGOTIATION SPECIALIST Legal Sex Female 9:46 PM CDT Gender Identity Female 04/29/2023 9:17 PM CONTRACT NEGOTIATION SPECIALIST Sexual Orientation Not on file Last Filed Vital Signs Vital Sign Reading Time Taken Comments Blood Pressure 140/89 04/29/2023 10:45 PM CONTRACT NEGOTIATION SPECIALIST Pulse 72 04/29/2023 10:45 PM CONTRACT NEGOTIATION SPECIALIST Temperature 36.9 C (98.5 F) 04/29/2023 7:16 PM CONTRACT NEGOTIATION SPECIALIST Respiratory Rate 18 04/29/2023 10:45 PM CONTRACT NEGOTIATION SPECIALIST Oxygen Saturation 99% 04/29/2023 10:45 PM CONTRACT NEGOTIATION SPECIALIST Inhaled Oxygen Concentration - - Weight 93 kg (205 lb) 04/29/2023 7:16 PM CONTRACT NEGOTIATION SPECIALIST Height 167.6 cm (5' 6 ) 04/29/2023 7:16 PM CONTRACT NEGOTIATION SPECIALIST Body Mass Index 33.09 04/29/2023 7:16 PM CONTRACT NEGOTIATION SPECIALIST Plan of Treatment Health Maintenance Due Date Last Done Comments Hepatitis C Virus (HCV) Screening 1977 Pap Smear 1998 Cervical Cancer Screening (CCS) 2007 HPV/Cotest 2007 Hepatitis B Immunization (2 of 3 - 19+ 3-dose series) 02/26/2012 01/29/2012 Discussion re Starting/Frequency of Mammograms 2017 Colonoscopy 2022 Colorectal Cancer Screening 2022 Influenza Immunization (#1) 02/02/20240 08/2022, 05/08/2022, 05/16/2021, Additional history exists SARS-COV-2 Immunization ( season) 2024 12/18/2020, 11/27/2020 Respiratory Syncytial Virus (RSV) Immunization (Adult) (1 - 1-dose 75+ series) 2052 DTaP/Tdap/Td Immunization Discontinued 05/30/2020 TdaP Immunization Completed 05/30/2020 Meningococcal Immunization (ACWY) Aged Out No longer eligible based on patient's age to complete this topic Pneumococcal Immunization Combined Aged Out No longer eligible based on patient's age to complete this topic Rotavirus Immunization Aged Out No lo nger eligible based on patient's age to complete this topic Medical Devices Implanted Type Area Technical Marketing Consultant Device Identifier Shelf Expiration Date Model / Serial / Lot Graft Bone Canc 30ml 4-10mm Freeze Dried Chips - [id number] Implanted:Qty: 1 on 02/19/2023 by Charlene Mares DPM at [facility] IMPLANT Left: Ankle [employer] 03/24/2027 [id number] / [id number] / [id number] Insurance MEDICAID [employer] Care Teams [place] Relationship Specialty Start Date End Date Jermaine Yi MD [address] [place] [address] [place] [address] PCP - General Internal Medicine 08/07/22 Charlene Mares DPM [address] [place] [address] [place] [address] Consulting Physician Podiatry 09/18/22
--- OUTSIDE RECORDS SUMMARY | 2024-07-14 09:15 | XMS_ITS | Referral Summary ---
Author Organization [facility] Address [address] [place] [address] Care Team Providers Care Duct Maker Name Role Phone Emanuel Sales MD Primary Care Provider [phone] Source Comments [facility],non-owned Affiliates and Associated Physician Practices is amultwooster community hospitale site organization consisting of ambulatory clinics and hospital sitesin [place], [place], [place] and [place]. This disclosure is being madepursuant to the Care Everywhere program and may not contain all information available regarding this patient. Last updated 18.[facility] Social History Tobacco Use Types Packs/Day Years Used Date Smoking Tobacco: Never Assessed Sex and Gender Information Value Date Recorded Sex Assigned at Not on file Gender Identity Not on file Sexual Orientation Not on file Plan of Treatment Not on file Care Teams Duct Maker Relationship Specialty Start Date End Date Emanuel Sales MD [address] [facility] [place] [address] PCP - General 11/06/21
--- OUTSIDE RECORDS SUMMARY | 2024-07-14 09:15 | XMS_ITS | Data Portability ---
Author Organization [facility], [address] [facility] ([place]) Address [address] 4th [place] [address] Care Team Providers Care Clinical Application Consultant Name Role Phone ZULEMA JEREZ Laser Specialist Assessment Encounter Date Assessment Date Assessment LastModified by Organization Details LastModified Time 11/28/2023 11/28/2023 Iraida is a pleasant 48-year-old female with a history of allergic rhinitis, anxiety and depression, insomnia, migraine headaches, hyperlipidemia and hypertension who has been referred for colon cancer screening. *Colon cancer screening -she is in agreement to proceed with screening colonoscopy. COLON CANCER SCREENING The patient is average risk for colorectal cancer screening has no GI complaints including unintentional weight loss, anemia, fevers, chills, nausea, vomiting, chest pain, shortness of breath, , GI bleeding including melena or hematochezia. The patient has no personal or family history of inflammatory bowel disease or GI malignancy. The patient has no significant cardiopulmonary disease to preclude safely undergoing anesthesia for the upcoming colonoscopy. The indications, risks, possible complications and alternatives of colonoscopy with possible biopsies and polypectomy were explained to the patient in non-technical medical terms. The risks include but are not limited to bleeding, intestinal perforation, infection (including endoscope induced infection), drug reaction, phlebitis, aspiration pneumonia, delayed post polypectomy or biopsy bleeding, missed lesions, incomplete resection of polyps requiring repeat endoscopy, and remote risk of catastrophic events including cardiovascular or pulmonary collapse, stroke and . Rarely, blood transfusions or surgery may be required to treat these conditions. The patient also understands that if large polyps are removed, there is potential bleeding risk and residual/recurrent polyp risk. All risks may be increased if patient uses steroids or has significant underlying diseases. The patient indicates understanding these risks and agrees to proceed with the procedure. hey Not available 11/28/2023 17:34:45 Plan of Treatment Reminders Order Date Submit Date Provider Last Modified By Organization Details Last Modified Time Details Appointments New Patient Visit 30.NEW 2024 01:00P M Dr. Raquel Paris Not available Not available Not available Lab None recorded . Referral None recorded . Procedures None recorded . Surgeries None recorded . Imaging None recorded . Medication Orders None recorded . Patient TargetsNo targets recorded. Patient InstructionsNo instructions recorded. Reason for Referral None Reported. Results Created Date Observation Date Name Description Value Unit Range Abnormal Flag Note LastModifiedBy Organization Detail LastModifiedTime 01/17/20 24 01/17/2024 SURGI JOSE PATHO LOGY spf Perfo rmed at: [facility] Order ing Provi mp: Shust er, Dmitr y Patie nt Name: FAYE PORTER beverly #: [id number] /A ge/Ge nder: 1975 (Age: 48) / F Proce dure Date: 2023 SP ECIME N(S) RECEI IRA * A:Rec wilmer, biops ies FI NAL PATHO LOGIC DIAGN OSIS* A. Rectu m, biops ies: - Focal activ e colit is, see comme nt Comme nt: Colon biops y shows focal nonsp ecifi c acute infla mmati on. No granu paul are ident ified . No signi fican t archi tectu ral disto rtion is prese nt. There is no evide nce of dyspl rosalinda or malig georgina . Diffe renti al diagn osis inclu mayi bowel prepa ratio n, infec tious /self limit ed colit is, drug react ion, diver ticul itis, ische chico and other s. Clini jose corre latio n is sugge sted. EL ECTRO NICAL LY VERIF IED BY VICTORINA ANG MD 2023 14:26 CL INICA L HISTO RY Colon cance r scree cielo GR OSS DESCR IPTIO N The speci men conta iner( s) and requi sitio n have the same patie nt name. Recei ira in forma rohan label ed A, recta l biops ies are three mcgee soft tissu es rangi ng from 0.2 to 0.4 cm in great est dimen beverly which are entir teodoro submi tted in one casse tte. The tissu e is proce ssed as forma rohan-f ixed paraf fin-e mbedd ed secti ons. ct 24 END OF REPOR T Not Available Ut Only - [facility] [address], [address], 01/20/2024 15:27:00 12/17/19 24 12/03/2023 MAMMO , scree cielo, digit al, bilat eral [address] [address] Teleph one [phone] Name: Pablo Hayes rdTatianna er [id number] am Date: 2023 Age: 48Phys ician: Tiffani, YONG, Daysi a : 1975Ex aminat ion: MAMM BILATE RAL DIGITA L SCREEN ING EXAM: MAMM BILATE RAL DIGITA L SCREEN ING, MAMM SCREEN ING TOMOSY NTHESI S ACCESS ION: [id number], [id number] EXAM DATE: 12/03/19 24 11:45 AM HISTOR Y: Screen ing. COMPAR ISA: Prior studie s dating back to 2022. DENSIT Y: There are scatte red areas of fibrog landul ar densit y. FINDIN GS: 2D digita l compos ite views as well as 3D digita l tomosy nthesi s views were perfor med. There are no suspic ious masses , calcif icatio ns, or other findin gs within either breast . There has been no signif icant interv al change . IMPRES BEVERLY: There is no mammog raphic eviden ce of malign delbert. ASSESS MENT: BI-RAD S 1: Negati ve. RECOMM ENDATI ON: 1. Screen ing Mammog mary bilate ral in 1 year COMMEN TS: The patien t will be entere d into an automa thomas remind er system for a screen ing mammog mary in 1 year. The patien t has been or will be contac thomas with the result s of this exam. Electr onical ly signed in Cornejo cribe by: PREETI Vargas MD on:12/01 2:51 PM cc: Page PAGE 1 of [facility] ES 1 INTERFACE Sc Only - Sc Radiology [address] [place] [address], [id number], 12/17/2023 15:54:54 12/18/19 24 07/19/2022 MAMMO , scree cielo, tomos ynthe sis, bilat eral No observ ation record ed. [email or web address] Not Available 12/01 16:06:37 06/22/19 25 06/22/2024 , [place] [address] Teleph one [phone] Name: Tatianna Shah 1478 Exam Date: 2024 Age: 48 Physic adalid: Lindsay cho MD, Leoncio : < > Examin ation: US PELVIC TRANSA BDOMIN AL AND TRANSV AGINAL EXAMIN ATION: TRANSA BDOMIN AL AND TRANSV AGINAL PELVIC SONOGR AM HISTOR Y: Prolon ged and irregu lar bleedi ng for severa l months post ablati on. Histor y of ablati on three years ago. COMPAR ISA: None. FINDIN GS: Uterus : The uterus is anteve rted and has a length of 9.5 cm, AP dimens ion of 5.4 cm, and transv erse dimens ion of 5.3 cm. The myomet rium is hetero geneou s with multip le echoge neeru areas which can be seen with adenom yosis. The endome trium measur es 15 mm in thickn ess. There are no uterin e fibroi ds. Right ovary: The right ovary measur es 4.8 x 1.8 x 2.3cm. There is a 2.5 x 2.0 x 2.4 cm cyst on the right ovary. There are normal spectr al Dopple r wavefo cody. Left ovary: The left ovary is not visual ized transa bdomin ally or transv aginal ly. No left adnexa l mass. No free fluid. IMPRES BEVERLY: 1. Thicke devora endome trium measur ing 15 mm. 2. Hetero geneou s appear ance of the myomet rium sugges tive of adenom yosis. 3. 2.5 cm cyst on the right ovary. 4. Left ovary not visual ized. Electr onical ly signed in Cornejo cribe by: AURORA Fitch MD on:06/04 11:25 AM cc: Page PAGE 1 of [facility] ES 1 rholck Sc Only - Sc Radiology [address] [place] [address], [id number], 06/22/2024 12:56:26 06/22/19 25 06/22/2024 US, [place] [address] Teleph one [phone] Name: Tatianna Shah [id number] Exam Date: 2024 Age: 48 Physic adalid: Lindsay cho MD, Leoncio : < > Examin ation: US PELVIC TRANSA BDOMIN AL AND TRANSV AGINAL EXAMIN ATION: TRANSA BDOMIN AL AND TRANSV AGINAL PELVIC SONOGR AM HISTOR Y: Prolon ged and irregu lar bleedi ng for severa l months post ablati on. Histor y of ablati on three years ago. COMPAR ISA: None. FINDIN GS: Uterus : The uterus is anteve rted and has a length of 9.5 cm, AP dimens ion of 5.4 cm, and transv erse dimens ion of 5.3 cm. The myomet rium is hetero geneou s with multip le echoge neeru areas which can be seen with adenom yosis. The endome trium measur es 15 mm in thickn ess. There are no uterin e fibroi ds. Right ovary: The right ovary measur es 4.8 x 1.8 x 2.3cm. There is a 2.5 x 2.0 x 2.4 cm cyst on the right ovary. There are normal spectr al Dopple r wavefo cody. Left ovary: The left ovary is not visual ized transa bdomin ally or transv aginal ly. No left adnexa l mass. No free fluid. IMPRES BEVERLY: 1. Thicke devora endome trium measur ing 15 mm. 2. Hetero geneou s appear ance of the myomet rium sugges tive of adenom yosis. 3. 2.5 cm cyst on the right ovary. 4. Left ovary not visual ized. Electr onical ly signed in Cornejo cribe by: AURORA Fitch MD on:06/04 11:25 AM cc: Page PAGE 1 of [facility] [[email or web address]] ES 1 rholck Sc Only - Sc Radiology [address] [place] [address], [id number], 06/22/2024 12:56:26 Result Notes None recorded. 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 Procedures Surgical History None recorded. Imaging Results Imaging Date Name Status LastModified by Organization Details LastModified Time 12/03/2023 MAMMO, screening, digital, bilateral completed INTERFACE Sc Only - Sc Radiology [address] [place] [address], [id number], 12/17/2023 15:54:54 07/19/2022 MAMMO, screening, tomosynthesis, bilateral completed [email or web address] Information not available 12/18/2023 16:06:37 06/22/2024 US, pelvis completed rholck Sc Only - Sc Radiology [address] [place] [address], [id number], 06/22/2024 12:56:26 06/22/2024 US, transvaginal completed rholck Ut Only - Ut Radiology [address] [place] [address], [id number], 06/22/2024 12:56:26 Procedure Notes None recorded. Medical Equipment None Reported. Allergies Allergen ID Allergen Name Allergen Category Reaction Reaction Severity Criticality Documentation Date Start Date Code Code System Note Provider Name and Address Organization Details Recorded Time [id number] vitamin B12 medicatio n hives Not available low 11/28/2023 96685 RxNorm Not Available Not Available Not Available Medications Name Sig Start Date Stop Date Status Note LastModified by Organization Details LastModified Time cetirizine 10 mg tablet Take 1 tablet every day by oral route. active Not Available Not Available No t Available atorvastatin active Not Available Not Available Not Available citalopram active Not Available Not Av ailable Not Available hydrochlorothiaz faviola active Not Available Not Available Not Available trazodone active Not Available Not Ruth ilable Not Available bupropion HCl active Not Available Not Available Not Available Qulipta active Not Available Not Avail able Not Available Vitals Date Recorded Heart rate Oxygen saturation Oxygen saturation in Arterial blood by Pulse oximetry Systolic blood pressure Diastolic blood pressure Provider Name and Address Organization Details Last Updated DateTime 4 72 /min 100 % 100 % 110 mm[Hg] 60 mm[Hg] Cornelia Duarte, FORENSIC SCIENTIST, LOOM DOFFER [address] [place] [address], [phone] , [facility] 4 16:54:19 Social History Question Answer Notes LastModified by Organizat ion Details LastModified Time What Is Your Level Of Alcohol Consumption? None hey Information not available 11/28/2023 Do You Use Any Illicit Or Recreational Drugs? No hey Information not available 11/28/2023 Sex: Unknown Functional Status None recorded. Mental Status None recorded. Family History Nothing Reported. Medical History No medical history recorded. Gynecological HistoryNo gynecological history recorded. Obstetrics History GPAL:G 0 P 0 0 0 0 Past Encounters Encounter ID Performer Location Encounter Start Date Encounter Closed Date Diagnosis/Indication Diagnosis SNOMED-CT Code Diagnosis ICD10 Code Diagnosis Note [id number] Zulema Jerez MD [facility] ([place]) [address] [facility],2nd [place] [address] 11/28/2023 16:41:05 11/28/2023 17:38:22 Health Concerns Section Related Observation LastModified by Organization Detai ls LastModified Time None Recorded Concern Status LastModified by Organization Details LastModified Time None Recorded Advance Directives Directive None Recorded Payers Encounter Date Sequence Insurance Name Policy Number Policy Senior Covered Member ID Senior Member ID Guarantor Name 11/28/2023 2 [facility] (MEDICARE REPLACEMENT/ ADVANTAGE - HMO) Iraida Cameronford [id number] Iraida Shah Notes Date Note Type Note Provider Name and Address Organization Details Recorded Time 11/28/2023 text/html Iraida is a pleasant 48-year-old female with a history of allergic rhinitis, anxiety and depression, insomnia, migraine headaches, hyperlipidemia and hypertension who has been referred for colon cancer screening.She is currently without GI complaints. She has had no abdominal pain, cramping, diarrhea, constipation, black stools or rectal bleeding. She reports no changes in her appetite or weight and no fever. Cornelia Duarte, FORENSIC SCIENTIST, LOOM DOFFER [address] [place] [address], [phone], [facility] 11/28/2023 17:37:05 OBGyn Episode No OBEpisode recorded.
--- OUTSIDE RECORDS SUMMARY | 2024-07-14 09:15 | XMS_ITS | Clinical Summary ---
Author Organization [facility] Address [address] [place] [address] Care Team Providers Care Professor/Nurse Anesthetist Name Role Phone Emanuel Sales MD Primary Care Provider Source Comments [facility],non-owned Affiliates and Associated Physician Practices is amultiple site organization consisting of ambulatory clinics and hospital sitesin [place], [place], [place] and [place]. This disclosure is being madepursuant to the Care Everywhere program and may not contain all information available regarding this patient. Last updated 18.[facility] Social History Tobacco Use Types Packs/Day Years Used Date Smoking Tobacco: Never Assessed Sex and Gender Information Value Date Recorded Sex Assigned at Not on file Gender Identity Not on file Sexual Orientation Not on file Plan of Treatment Health Maintenance Due Date Last Done Comments COLOGUARD (AGES 45-75) - COL ON CA SCREENING 1977 COLON MONITORING 1977 COLONOSCOPY - COLON CA SCREENING 1977 CT COLONOGRAPHY - COLON CA SCREENING 1977 Colorectal Cancer Screening 1977 FIT - COLON CA SCREENING 1977 FLEX SIG - COLON CA SCREENING 1977 LIPID TESTING 1975 MAMMOGRAM 1977 PAP SMEAR 1977 HIV SCREENING 1992 HEPATITIS C SCREENING 07/09/1995 DTAP/TDAP/TD VACCINES (1 - Tdap) 1996 HEPATITIS B VACCINE (1 of 3 - 19+ 3-dose series) 1996 COVID-19 VACCINE ( - 2023-2 5 season) 2024 INFLUENZA VACCINE (#1) 2024 DEPRESSION SCREENING 06/03/2024 ZOSTER VACCINE (1 of 2) 2027 HIB VACCINE Aged Out No longer eligi ble based on patient's age to complete this topic HPV VACCINE Aged Out No longer eligi ble based on patient's age to complete this topic MENINGOCOCCAL (Group B) VACCINE Aged Out No longer eligible based on patient's age to complete this topic MENINGOCOCCAL VACCINE Aged Out No dale douglas eligible based on patient's age to complete this topic PNEUMOCOCCAL VACCINE Aged Out No long er eligible based on patient's age to complete this topic Care Teams Professor/Nurse Anesthetist Relationship Specialty Start Date End Date Emanuel Sales MD [address] [place], [place] [phone] PCP - General 11/06/21
--- OUTSIDE RECORDS SUMMARY | 2024-07-14 09:15 | XMS_ITS | Patient Health Summary ---
Author Organization [facility] Address [address] [facility] [place] [address] Care Team Providers Care Guide Travel Name Role Phone Emanuel Sales MD Primary Care Provider [phone] Note from [facility],non-owned Affiliates and Associated Physician Practices is amultiple site organization consisting of ambulatory clinics and hospital sitesin [place], [place], [place] and [place]. This disclosure is being madepursuant to the Care Everywhere program and may not contain all information available regarding this patient. Last updated 18.[facility] Social History Tobacco Use Types Packs/Day Years Used Date Smoking Tobacco: Never Assessed Sex and Gender Information Value Date Recorded Sex Assigned at Not on file Gender Identity Not on file Sexual Orientation Not on file Care Teams Guide Travel Relationship Specialty Start Date End Date Emanuel Sales MD [address] [phone] PCP - General 11/06/21
[2024-07-14 09:34] LABS: Hematocrit 41.2 % (37.0-47.0); Hemoglobin 13.9 g/dL (12.0-15.0); Mean Corpuscular HGB Conc 33.7 g/dl (32-36); Mean Corpuscular Hemoglobin 33.5 pg (26-34); Mean Corpuscular Volume 99.3 fl (80-100); Mean Platelet Volume 9.5 fl (7.4-10.4); Platelet Count Result 298 k/mm3 (150-375); Red Blood Count 4.15 M/mm3 (4.2-5.4); Red Cell Distribution Width 12.8 % (11.5-14.5); White Blood Count 7.7 K/mm3 (4.5-10.0)
[2024-07-14 09:50] LABS: Anion Gap 11 mmol/L (4-12); Blood Urea Nitrogen 12 mg/dL (7-17); Calcium 9.3 mg/dL (8.4-10.2); Carbon Dioxide 27 mmol/L (22-30); Chloride 102 mmol/L (98-107); Estimated Glomerular Filt Rate > 60; Glucose 92 mg/dL (65-110); Potassium 3.6 mmol/L (3.4-5.0); Sodium 140 mmol/L (137-145)
== END 2024-07-14 08:29 | disposition home or self-care (01) ==
PROVIDERS: Anesthesiology; Visit Provider Obstetrics & Gynecology
DX: Z01.818 Encounter for other preprocedural examination (principal); N99.85 Post endometrial ablation syndrome; E78.00 Pure hypercholesterolemia, unspecified; T50.2X5A Adverse effect of carbonic-anhydrase inhibitors, benzothiadiazides and other diuretics, initial encounter
CPT/HCPCS: 36415; 80048; 85027; 86850; 86900; 86901; 93005

== ENCOUNTER 2024-07-23 00:26 | Day surgery (SDC) | payer OTHER, SELFPAY ==
[2024-07-09 12:28] VITALS: BMI 29.5
--- NOTE | 2024-07-09 12:39 | PC.NURSE ---
Report to the Outpatient Waiting Room, entrance under the green pavilion located off [facility], at time 07:30a.m. on date 07/23/2024. Planned Procedure Time: 9:30a.m.? Time changes happen often and if your time is changed the preop area will call you the afternoon before. - You and your visitor will be asked to self-screen and do not enter if you have any COVID symptoms. Please call surgeon if you need to reschedule. - A mask is optional within the hospital at this time. Patients may have clear liquids (water, carbonated beverages, clear teas, apple juice) until 3 hours prior to surgery with a maximum of 20 ounces. - No food from midnight until time of surgery and no smoking, or chewing tobacco (or any form of nicotine). No chewing gum, candy or mints. - Infants may have breast milk until 4 hours before surgery, infant formula 6 hours prior to surgery. - Children will be allowed to drink immediately following surgery.? If applicable, please bring a bottle or sippy cup to assist with drinking. Juice, water, soda, and popsicles are readily available.? For infants on formula, please bring formula the day of surgery.? Pacifiers are allowed. Take only the following medications with a SIP of water on the morning of surgery: bupropion DO NOT STOP ANY OF YOUR OTHER PRESCRIPTION MEDICATIONS PRIOR TO SURGERY EXCEPT THE FOLLOWING Hold all vitamins and supplements for 3 days per anesthesiologist. Medications to discontinue per physician N/A Date to take last dose N/A Please no make-up, nail kuwaiti, hairspray, perfume, deodorant, or body powder the day of surgery.? No jewelry (including any body piercings) or valuables the day of surgery, leave them at home.? Please take a shower or bath the night before, or the morning of, surgery with an antibacterial soap.? Wear comfortable, loose fitting clothing.? Children are encouraged to wear pajamas. - Jewelry must be removed prior to entering the operating room.? Rings and piercings that are not removed may be cut off. - The hospital will not accept responsibility for valuables.? - Please leave all valuables, including medications, at home the day of surgery. If you are going home after surgery, a licensed gravel truck driver must drive you home.? - NO public transportation without another adult if you receive anesthesia. - We recommend that an adult stay with you for 24 hours following discharge. - We also recommend that you do not drive, make important decision, drink alcoholic beverages, or take any drugs that were not prescribed by your health care provider for at least 24 hours after your discharge time. For Pediatric surgeries, we recommend two adults accompany the child home. Follow any additional instructions given to you from your surgeon. Telephone instructions given to Iraida Shah and asked if any additional questions and then verbalized understanding. Patient advised to call surgeon office or pre surgery nurse liaison [phone] if any additional questions.
--- NOTE | 2024-07-21 15:12 | P.HP_ITS ---
H&P: HPI History of Present Illness Date/Time: 07/21/24 15:12 48-year-old female presents with complaints of heavy vaginal bleeding. Underwent endometrial ablation approximately 2 years ago which worked nicely for her, though over the past year has been increasing in amount and duration. She is needing to wear a liner almost every day and changes multiple times every day. Denies any other significant gynecologic symptoms. Ultrasound was performed which revealed enlarged uterus at 9-10 cm with findings consistent with adenomyosis. She has undergone multiple hysteroscopy with D and C's including most recent with the ablation in 2021. Polyps were found at that time. Also is status post fallopian tube removal for bilateral ectopic pregnancies. Chief Complaint: Post endometrial ablation syndrome Review of Systems Review of Systems: All systems reviewed & are unremarkable except as noted in HPI and below PMFSH Past Medical History Medical History Screening mammogram, encounter for Hx of migraines Encounter for screening examination for sexually transmitted disease Anxiety History of PCR DNA positive for HSV2 Hypercholesterolemia HTN (hypertension) Surgical History Surgical History History of hysteroscopy (03/08/22) hscope D&C / endometrial ablation History of hysteroscopy (11/02/21) Hscope D&C Status post surgical removal of both fallopian tubes Family History Family History Other Adopted Social History Social History Smoking status: Never smoker Alcohol intake: never Substance use: never Substance use type: does not use Do You Feel Safe in your Home?: Yes Lack of Transportation: No Lack of Food: Never True Current Housing: I Have Housing Concerned About Future Housing: No Difficulty Paying Gas/Electric Bills: No Difficulty Paying for Meds: No Currently Unemployed: YES Education: High School Diploma/GED Difficulty w/ Childcare or Family Care: No Living arrangements: alone Additional living arrangements comments: Occupation/Education: occupation 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 Gender identity (if verbalized by the patient): Female Sexual Orientation (if Verbalized by the Patient): Straight or Heterosexual Spiritual care concerns: No Meds Home Medications and Allergies Home Medications ?Medication ?Instructions ?Recorded ?Confirmed ?Type valacyclovir 500 mg tablet 500 mg PO DAILY PRN herpes 05/10/19 07/09/24 History atorvastatin 10 mg tablet 10 mg PO DAILY 04/09/20 07/09/24 History bupropion HCl 300 mg 24 hr tablet, 300 mg PO DAILY 04/09/20 07/09/24 History extended release citalopram 20 mg tablet 20 mg PO DAILY 04/09/20 07/09/24 History hydrochlorothiazide 12.5 mg tablet 12.5 mg PO DAILY 06/16/24 07/09/24 History atogepant 60 mg tablet (Qulipta) 60 mg PO DAILY 07/09/24 07/09/24 History trazodone 50 mg tablet 50 mg PO HS 07/09/24 07/09/24 History Allergies Allergy/AdvReac Type Severity Reaction Status Date / Time vitamin B 12 Allergy Intermediate Hives Uncoded 07/09/24 12:22 Exam Const: General: cooperative, healthy appearing and comfortable Resp: Effort & Inspection: normal respiratory effort Auscultation: clear to auscultation bilaterally Cardio: Rate: regular rate Rhythm: regular rhythm GI: Inspection: normal to inspection Auscultation: normal bowel sounds : External Female Exam: normal external appearance Speculum Exam - Vagina: normal appearance of the vagina Speculum Exam - Cervix: normal appearance of the cervix Bimanual exam- vagina & uterus: enlarged ( 10-12 week size) Bimanual Exam- Adnexa, other: normal adnexae Assessment and Plan Assessment and plan (1) Post endometrial ablation syndrome: 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
[2024-07-23] VITALS (11 sets, daily range): BP systolic 108–127; BP diastolic 57–73; PULSE 61–75; RESP 12–18; TEMP 36.2–36.9; O2SAT 97–100
--- OUTSIDE RECORDS SUMMARY | 2024-07-23 00:29 | XMS_ITS | Clinical Summary ---
Author Organization [facility] Address [address] [place] [address] Phone Care Team Providers Care Concierge Manager Name Role Phone Jermaine Yi MD Primary Care Provider [phone] Charlene Mares DPM Unavailable [phone] Allergies Active Allergy Reactions Criticality Noted Date [...] 05/20/2024 Telephone [facility] - Gastroenterology [facility] [address] [place] [address] Victorina Rendon APRN, STILL PUMP OPERATOR from Last 3 Months Immunizations Immunization Administration [...] Sex Assigned at Female 04/29/2023 9:17 PM PROSTHETIC ASSISTANT Legal Sex Female 9:46 PM CDT Gender Identity Female 04/29/2023 9:17 PM PROSTHETIC ASSISTANT Sexual Orientation Not on file Last Filed Vital Signs Vital Sign Reading Time Taken Comments Blood Pressure 140/89 04/29/2023 10:45 PM PROSTHETIC ASSISTANT Pulse 72 04/29/2023 10:45 PM PROSTHETIC ASSISTANT Temperature 36.9 C (98.5 F) 04/29/2023 7:16 PM PROSTHETIC ASSISTANT Respiratory Rate 18 04/29/2023 10:45 PM PROSTHETIC ASSISTANT Oxygen Saturation 99% 04/29/2023 10:45 PM PROSTHETIC ASSISTANT Inhaled Oxygen Concentration - - Weight 93 kg (205 lb) 04/29/2023 7:16 PM PROSTHETIC ASSISTANT Height 167.6 cm (5' 6 ) 04/29/2023 7:16 PM PROSTHETIC ASSISTANT Body Mass Index 33.09 04/29/2023 7:16 PM PROSTHETIC ASSISTANT Plan of Treatment Health Maintenance Due Date [...] this topic Medical Devices Implanted Type Area Head Mva Reactor Operator Device Identifier Shelf Expiration Date Model / Serial / Lot Graft Bone Canc 30ml 4-10mm Freeze Dried Chips - [id number] Implanted:Qty: 1 on 02/19/2023 by Charlene Mares DPM at [facility] IMPLANT Left: Ankle [employer] 03/24/2027 [id number] / [id number] / [id number] Insurance MEDICAID [employer] Care Teams Concierge Manager Relationship Specialty Start Date End Date Jermaine Yi MD [address] [place] [address] [place] [address] PCP - General Internal Medicine 08/07/22 Charlene Mares DPM [address] [place] [address] [place] [address] Consulting Physician Podiatry 09/18/22
--- OUTSIDE RECORDS SUMMARY | 2024-07-23 00:29 | XMS_ITS | Clinical Summary ---
Author Organization [facility] Address [address] [place] [address] Care Team Providers Care Zinc Plating Machine Operator Name Role Phone Anuj Reyes PT Unavailable Unavaila Beth Faria PTA Unavailable Unavailab Emanuel Tong MD Primary Care Provider [phone] Anuj Escobar MD Unavailable [phone] Allergies Active Allergy Reactions Criticality Noted Date Comments Cyanocobalamin-Cobamamide Hives Medium 06/05/2017 Medications potassium chloride ER (KLOR-CON,K-DUR) 10 mEq CR tablet Take 10 mEq by mouth daily. Active multivitamin capsule Take 1 capsule by mouth daily Active cyclobenzaprine (FLEXERIL) 10 mg tablet Take 1 tablet (10 mg total) by mouth 3 (three) times a day as needed for muscle spasms 12 tablet 11/10/19 19 Active Additional Information Patient not taking.Reported on 09/18/2022 valACYclovir (VALTREX) 500 mg tablet TAKE ONE TABLET BY MOUTH TWICE A DAY 30 tablet 2 01/27/20 19 Active naproxen (NAPROSYN) 500 mg tablet Take 1 tablet (500 mg total) by mouth 2 (two) times a day with meals 30 tablet 06/19/19 20 Active Additional Information Patient not taking.Reported on 09/18/2022 ondansetron ODT (ZOFRAN-ODT) 4 mg disintegrating tablet Dissolve 1 tablet for mild to moderate nausea or vomiting or 2 tablets for severe nausea or vomiting oral twice a day as needed. 15 tablet 06/19/19 20 Active Additional Information Patient not taking.Reported on 09/18/2022 losartan (COZAAR) 50 mg tablet losartan 50 mg tablet TK 1 T PO QD Active atorvastatin (LIPITOR) 10 mg tablet TK 1 T PO D 02/15/20 20 Active citalopram (CeleXA) 20 mg tablet TK 1 T PO QD HS 02/14/20 20 Active buPROPion XL (WELLBUTRIN XL) 300 mg 24 hr tablet TK 1 T PO QD IN THE MORNING FOR 30 DAYS 02/14/20 20 Active montelukast (SINGULAIR) 10 mg tablet TK 1 T PO QD 02/15/20 20 Active loratadine (CLARITIN) 10 mg tablet TK 1 T PO QD 01/29/20 20 Active amoxicillin-clavul anate (AUGMENTIN) 875-125 mg per tablet Take 1 tablet by mouth every 12 (twelve) hours 14 tablet 05/30/20 20 Active Additional Information Patient not taking.Reported on 09/18/2022 predniSONE (DELTASONE) 20 mg tablet Take 1 tablet (20 mg) by mouth 2 (two) times a day 14 tablet 05/28/20 21 Active Additional Information Patient not taking.Reported on 09/18/2022 fexofenadine (JEFF) 180 mg tablet Take 1 tablet (180 mg total) by mouth daily Take as directed for seasonal allergies. Collaborating physician Ramana Varner MD 30 tablet 02/02/20 22 Active Additional Information Patient not taking.Reported on 09/18/2022 olopatadine (PATADAY) 0.2 % ophthalmic solutionIndication s:Allergic Conjunctivitis Administer 1 drop into both eyes daily 5 mL 02/02/20 22 Active Additional Information Patient not taking.Reported on 09/18/2022 traZODone (DESYREL) 50 mg tablet Take 1 tablet (50 mg total) by mouth nightly as needed 09/12/19 23 Active atogepant (Qulipta) 60 mg tablet TAKE 1 TABLET BY MOUTH DAILY 90 tablet 01/08/20 24 Active Active Problems Problem Noted Date Diagnosed Date Morbid obesity due to excess calories 09/18/2022 Assessment & Plan (09/18/2022 11:04 AM CDT): Unfortunately the patient's BMI is 35. With any weight loss during the process which would be required by insurance this is going to drop her weight below the threshold. I have brought up some other solutions for trying to help her going forward. This involves seen a dietitian as well as attending our monthly support group meetings. I have also discussed referral to a medical obesity doctor to try and help with any other solutions other than surgery. She is in understanding of the plan. Allergic rhinitis due to allergen 02/01/2022 Sinus pain 02/01/2022 Chronic migraine without aur a without status migrainosus, not intractable 02/17/2020 Chronic midline low back pain without sciatica 0 12/08/2018 Lumbar facet arthropathy 12/08/2018 Numbness of left lower extremity 12/08/2018 History of herpes simplex infection 02/18/2018 Encounters Date Type Department Care Team Description 05/11/2024 Telephone [facility] [address] [facility] [address] [address] Iraida Rinaldi MA from Last 3 Months Immunizations Immunization Administration Dates Next Due Tdap 05/30/2020 Surgical History Surgery Date Site/Laterality Comments OTHER SURGICAL HISTORY Bilateral removal of fallopian tube COLPOSCOPY 04/28/2018 ABLATION 02/01/2022 - 03/02/2022 Medical History Medical History Date Comments Ectopic Abnormal Pap smear of cervix 02/14/2018 ASC -US + HPV Hypertension Asthma Arthritis Social History Tobacco Use Types Packs/Day Years Used Date Smoking Tobacco: Never Smokeless Tobacco: Never Tobacco Cessation:Counseling Given: Not Answered Alcohol Use Standard Drinks/Week Comments No 0 (1 standard drink = 0.6 oz pur e alcohol) PHQ-2 Answer Date Recorded PHQ-2 Score 1 01/24/2019 Personal Safety Answer Date Recorded Getting School Help Needed Not on file 12/18 Comments No Sex and Gender Information Value Date Recorded Sex Assigned at Not on file Legal Sex Female 4:22 AM SYSTEM SAFETY MANAGER Gender Identity Not on file Sexual Orientation Not on file Obstetrics History Para Term AB IAB SAB Ectopic Multiple Livin g Live Births 6 0 0 0 0 Date Outcome GA Total Labor Labor/2nd/3rd Weight Sex Type Anes PTL Karin A1 A5 Name Clin Last Filed Vital Signs Vital Sign Reading Time Taken Comments Blood Pressure 130/87 01/25/2023 10:17 AM CDT Pulse 60 01/25/2023 10:17 AM CDT Temperature 36.6 C (97.9 F) 12/14/2022 8:49 PM CDT Respiratory Rate 18 12/14/2022 8:49 PM CDT Oxygen Saturation 97% 01/25/2023 10:17 AM CDT Inhaled Oxygen Concentration - - Weight 97.5 kg (215 lb) 01/25/2023 10:17 AM CDT Height 167.6 cm (5' 6 ) 01/25/2023 10:17 AM CDT Body Mass Index 34.7 01/25/2023 10:17 AM CDT Plan of Treatment Health Maintenance Due Date Last Done Comments Colon Cancer Screening-Colonoscopy 1977 Hepatitis C Screening 1977 Hepatitis B Screening 1995 Cervical Cancer Screening 02/14/2019 02/14/2018 Depression Screening 02/14/2019 02/14/2018 Regular Well Visit/Exam 18-64 02/14/2019 02/14/2018 Breast Cancer Screening-Mammogram 07/19/2023 023 Influenza Vaccine (#1) 2024 DTaP/Tdap/Td Vaccine (2 - Td or Tdap) 05/30/2030 05/30/2020 HPV Vaccines Aged Out No longer eligi ble based on patient's age to complete this topic Pneumococcal vaccine <65 Aged Out No longer eligible based on patient's age to complete this topic Procedures Procedure Name Priority Date/Time Associated Diagnosis Comments SCREENING MAMMOGRAM BILATERAL W JAVIER Schedule Routine, Read Routine (OP Routine) 07/19/2022 3:10 PM SYSTEM SAFETY MANAGER Screening mammogram, encounter for IMAGING PAP AND HPV MRNA E6/E7 Routine 02/14/2018 2:38 PM CDT Well woman exam from Last 3 Months or Most Recently Relevant to Health Maintenance Results * Screening Mammogram Bilateral W Javier (07/19/2022 3:10 PM SYSTEM SAFETY MANAGER) Anatomical Region Laterality Modality Breast Bilateral Mammography 07/19/2022 3:44 PM SYSTEM SAFETY MANAGER Impressions 07/19/2022 3:44 PM SYSTEM SAFETY MANAGER There is no mammographic evidence of malignancy. A 1 year screening mammogram is recommended. BI-RADS: 1 - Negative. The patient has been or will be contacted. The patient will be entered into a reminder system with a target due date of 1 year for her next mammogram. Electronically signed by: Marti Moore M.D. Narrative 07/19/2022 3:44 PM SYSTEM SAFETY MANAGER EXAMINATION: SCREENING MAMMOGRAM BILATERAL W JAVIER ORDERING HEALTHCARE PROVIDER: SELF SCREENING MAMMOGRAM HISTORY: Routine screening mammography. COMPARISON: Baseline study TECHNIQUE: CC and MLO views of the bilateral breasts were obtained with digital technique using breast tomosynthesis with C view. Computer aided detection was utilized. FINDINGS: DENSITY: The tissue of the bilateral breasts is almost entirely fatty. BREASTS: There are no suspicious masses, suspicious calcifications, or other suspicious findings in either breast. There has been no suspicious interval change. us Self Screening Mammogram IMG MAMMO PROCEDURES Fi nal Result * (ABNORMAL) Imaging Pap and HPV mRNA E6/E7 (02/14/2018 2:38 PM CDT) Report status CANCELED [facility] - Comment:Result canceled by aurelia sr ancillary CLINICAL INFORMATION: [facility] [place] Comment:Information not prov ided LMP [facility] [place] Comment:INFORMATION NOT PROV IDED Previous Pap [facility] [place] Comment:INFORMATION NOT PROV IDED Prev. Bx [facility] [place] Comment:INFORMATION NOT PROV IDED SOURCE: [facility] [place] Comment:Information not prov ided Pap, specimen adequacy [facility] [place] Comment: Satisfactory for evaluation. Endocervical/transformation zone component present. Pap, general categorization (A) [facility] [place] Comment:EPITHELIAL CELL ABNO RMALITY HPV interp (A) [facility] [place] Comment: Atypical Squamous Cells of Undetermined Significance (ASC-US) Infection: [facility] [place] Comment: Shift in vaginal manav suggestive of bacterial vaginosis. COMMENTS [facility] - Comment: This Pap test has been evaluated with computer assisted technology. Suggest clinical correlation and follow-up as clinically appropriate [facility] - Comment: TMK, CT(ASCP) CT screening location: [place] [address] [place], [place] [address] Review living coach CANCELED [facility] [place] Comment:Result canceled by aurelia sr ancillary Pathologist [facility] - Comment: Martin Tsang M.D., Board Certified in Anatomic Pathology and Cytopathology. (electronic signature) Comment [facility] - Comment: EXPLANATORY NOTE: The Pap is a screening test for cervical cancer. It is not a diagnostic test and is subject to false negative and false positive results. It is most reliable when a satisfactory sample, regularly obtained, is submitted with relevant clinical findings and history, and when the Pap result is evaluated along with historic and current clinical information. Human papillomavirus RNA, High Risk E6/E7 Detected(A) Not Detected [facility] Comment: This test was performed using the APTIMA HPV Assay ([employer] This assay detects E6/E7 viral messenger RNA (mRNA) from 14 high-risk HPV types (16,18,31,33,35,39,45,51,52,56,58,59,66,68). The analytical performance characteristics of this assay have been determined by [employer]. The modifications have not been cleared or approved by the FDA. This assay has been validated pursuant to the CLIA regulations and is used for clinical purposes. Endocervical/vag inal 02/14/2018 2:38 PM CDT 02/15/2018 12:54 AM CDT Narrative Resulting Agency Comment Performing Organization Information: Site ID: [place] Name: [facility] Address: [address] [facility] [place] [address] Director: Faraz Polk D.O., MPH Site ID: [place] Name: [facility] Address: [address] [address] Director: Jass Stockton Keely Pedraza NP LAB PATHOLOGY ORDERABLES Final R esult [facility] - [facility] [place] from Last 3 Months or Most Recently Relevant to Health Maintenance Insurance [facility] Care Teams Zinc Plating Machine Operator Relationship Specialty Start Date End Date Emanuel Sales MD PCP - General 03/12/20 Anuj Reyes, PT Physical Therapist Physical Therapy 12/02/17 Beth eGorge, TELECOMMUNICATIONS MANAGER Physical Therapist Physical Therapy 12/09/17 Anuj Escobar MD [address] [place] [address] [address] [place] [address] Consulting Physician Neurology 09/19/22
--- OUTSIDE RECORDS SUMMARY | 2024-07-23 00:29 | XMS_ITS | Referral Summary ---
Author Organization [facility] Address [address] [facility] [place] [address] Care Team Providers Care Ward Assistant Name Role Phone Emanuel Sales MD Primary Care Provider [phone] Source Comments [facility],non-owned Affiliates and Associated Physician Practices is [facility] site organization consisting of ambulatory clinics and hospital sitesin [place], [place], [place] and [place]. This disclosure is being madepursuant to the Care Everywhere program and may not contain all information available regarding this patient. Last updated 18.[facility] Social History Tobacco Use Types Packs/Day Years Used Date Smoking Tobacco: Never Assessed Sex and Gender Information Value Date Recorded Sex Assigned at Not on file Gender Identity Not on file Sexual Orientation Not on file Plan of Treatment Not on file Care Teams Ward Assistant Relationship Specialty Start Date End Date Emanuel Sales MD [address] [facility] [place] [address] PCP - General 11/06/21
--- OUTSIDE RECORDS SUMMARY | 2024-07-23 00:29 | XMS_ITS | Referral Summary ---
Author Organization [facility] Address [address] [place] [address] Care Team Providers Care Front Elevator Operator Name Role Phone Anuj Reyes PT Unavailable Unavaila Beth Faria PTA Unavailable Unavailab Emanuel Tong MD Primary Care Provider [phone] Anuj Escobar MD Unavailable [phone] Encounters Date Type Department Care Team Description 05/11/2024 Telephone [facility] [address] [facility] [address] [place] [address] Iraida Rinaldi MA from Last 3 Months Allergies Active Allergy Reactions Criticality Noted Date [...] IN THE MORNING FOR 30 DAYS 02/14/20 Active montelukast (SINGULAIR) 10 mg tablet TK [...] 12/08/2018 History of herpes simplex infection 02/18/2018 Immunizations Immunization Administration Dates Next Due Tdap 05/30/2020 Social History Tobacco Use Types Packs/Day Years [...] on file Legal Sex Female 4:22 AM ELECTRICAL UNIT REBUILDER Gender Identity Not on file Sexual Orientation Not on file Last Filed [...] 01/25/2023 10:17 AM CDT Plan of Treatment Not on file Procedures Procedure Name Priority Date/Time Associated Diagnosis Comments SCREENING MAMMOGRAM BILATERAL W JAVIER Schedule Routine, Read Routine (OP Routine) 07/19/2022 3:10 PM ELECTRICAL UNIT REBUILDER Screening mammogram, encounter for IMAGING PAP AND HPV MRNA E6/E7 Routine 02/14/2018 2:38 PM CDT Well woman exam from Last 3 Months or Most Recently Relevant to Health Maintenance Results * Screening Mammogram Bilateral W Javier (07/19/2022 3:10 PM ELECTRICAL UNIT REBUILDER) Anatomical Region Laterality Modality Breast Bilateral Mammography 07/19/2022 3:44 PM ELECTRICAL UNIT REBUILDER Impressions 07/19/2022 3:44 PM ELECTRICAL UNIT REBUILDER There is no mammographic evidence of malignancy. A 1 year screening mammogram is recommended. BI-RADS: 1 - Negative. The patient has been or will be contacted. The patient will be entered into a reminder system with a target due date of 1 year for her next mammogram. Electronically signed by: Marti Moore M.D. Narrative 07/19/2022 3:44 PM ELECTRICAL UNIT REBUILDER EXAMINATION: SCREENING MAMMOGRAM BILATERAL W JAVIER ORDERING [...] (02/14/2018 2:38 PM CDT) Report status CANCELED [facility] [place] Comment:Result canceled by t orin ancillary CLINICAL INFORMATION: [facility] [place] Comment:Information not prov ided LMP [facility] [place] Comment:INFORMATION NOT PROV IDED Previous Pap [facility] [place] Comment:INFORMATION NOT PROV IDED Prev. Bx [facility] [place] Comment:INFORMATION NOT PROV IDED SOURCE: [facility] - Comment:Information not prov ided Pap, specimen adequacy [facility] - Comment: Satisfactory for evaluation. Endocervical/transformation zone component present. Pap, general categorization (A) [facility] - Comment:EPITHELIAL CELL ABNO RMALITY HPV interp (A) [facility] - Comment: Atypical Squamous Cells of Undetermined Significance (ASC-US) Infection: [facility] - Comment: Shift in vaginal manav suggestive of bacterial vaginosis. COMMENTS [facility] - Comment: This Pap test has been evaluated with computer assisted technology. Suggest clinical correlation and follow-up as clinically appropriate [facility] - Comment: TMK, CT(ASCP) CT screening location: [place] [address] [place] [address] Review petroleum plant operator CANCELED [facility] - Comment:Result canceled by aurelia sr ancillary Pathologist [facility] - Comment: Martin Tsang M.D., Board Certified in Anatomic Pathology and Cytopathology. (electronic signature) Comment [facility] - Comment: EXPLANATORY NOTE: The Pap [...] RNA, High Risk E6/E7 Detected(A) Not Detected [facility] [place] Comment: This test was performed using the APTIMA HPV Assay ([employer] This assay detects E6/E7 viral messenger RNA (mRNA) from 14 high-risk HPV types (16,18,31,33,35,39,45,51,52,56,58,59,66,68). The analytical performance characteristics of this assay have been determined by [employer]. The modifications have not been cleared or approved by the FDA. This assay has been validated pursuant to the CLIA regulations and is used for clinical purposes. Endocervical/vag inal 02/14/2018 2:38 PM CDT 02/15/2018 12:54 AM CDT Narrative Resulting Agency Comment Performing Organization Information: Site ID: [place] Name: [facility] Address: [address] [address] Director: Faraz Polk D.O., MPH Site ID: [place] Name: [facility] Address: [address] [address] Director: Jass Stockton Keely Pedraza ORDER EDITOR LAB PATHOLOGY ORDERABLES Final R esult [facility] [place] [place] from Last 3 Months or Most Recently Relevant to Health Maintenance Insurance [facility] Care Teams Front Elevator Operator Relationship Specialty Start Date End Date Emanuel Sales MD PCP - General 03/12/20 Anuj Reyes, PT Physical Therapist Physical Therapy 12/02/17 Beth George, HVAC COMMERCIAL SALESPERSON Physical Therapist Physical Therapy 12/09/17 Anuj Escobar MD [address] [facility] [place] [address] Consulting Physician Neurology 09/19/22
--- OUTSIDE RECORDS SUMMARY | 2024-07-23 00:29 | XMS_ITS | Patient Health Summary ---
Author Organization [facility] Address [address] [facility] [place] [address] Care Team Providers Care Appliance Repairer Name Role Phone Emanuel Sales MD Primary Care Provider [phone] Note from [facility],non-owned Affiliates and Associated Physician Practices is amultiple site organization consisting of ambulatory clinics and hospital sitesin [place], [place], [place] and [place]. This disclosure is being madepursuant to the Care Everywhere program and may not contain all information available regarding this patient. Last updated 18.[facility] Social History Tobacco Use Types Packs/Day Years Used Date Smoking Tobacco: Never Assessed Sex and Gender Information Value Date Recorded Sex Assigned at Not on file Gender Identity Not on file Sexual Orientation Not on file Care Teams Appliance Repairer Relationship Specialty Start Date End Date Emanuel Sales MD [address] [id number] PCP - General 11/06/21
--- OUTSIDE RECORDS SUMMARY | 2024-07-23 00:29 | XMS_ITS | Data Portability ---
Author Organization [facility], [address] [facility] ([place]) Address [address] [place] [address] Care Team Providers Care Automotive Quality Engineer Name Role Phone ZULEMA JEREZ Sales Support Engineer [phone] Assessment Encounter Date Assessment Date Assessment LastModified [...] 24 END OF REPOR T Not Available [place] Only - [facility] [address], [address], 01/20/2024 15:27:00 12/17/19 24 12/03/2023 MAMMO , scree cielo, digit al, bilat eral [address] [address] Teleph one [phone] Name: Pablo Hayes rdTatianna er 2820Ex am Date: 2023 Age: 48Phys ician: Tiffani, YONG, Daysi a : 1975Ex aminat ion: MAMM BILATE RAL DIGITA L SCREEN ING EXAM: MAMM BILATE RAL DIGITA L SCREEN ING, MAMM SCREEN ING TOMOSY NTHESI S ACCESS ION: [id number], [id number] EXAM DATE: 12/03/19 24 11:45 AM [...] 2:51 PM cc: Page [facility] [address] [facility] [facility] [facility] INTERFACE [place] Only - Sc Radiology [address] [place] [address], [address], 12/17/2023 15:54:54 12/18/19 24 07/19/2022 MAMMO , scree cielo, tomos ynthe sis, bilat eral No observ ation record ed. [email or web address] Not Available 12/01 16:06:37 06/22/19 25 06/22/2024 , [place] [address] Teleph one Name: Tatianna Shah 3170 Exam Date: 2024 Age: 48 Physic adalid: [...] 11:25 AM cc: Page [address] [facility] [facility] rholck Sc Only - Sc Radiology [address] [place] [address], [id number], 06/22/2024 12:56:26 06/22/19 25 06/22/2024 US, [place] [address] Teleph one Name: Tatianna Shah 1342 Exam Date: 2024 Age: 48 Physic adalid: [...] 11:25 AM cc: Page PAGE 1 of [facility] ES 1 rholck Sc Only - Sc Radiology [address] [place] [address], [id number], 06/22/2024 12:56:26 Result Notes None recorded. 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 Procedures Surgical History None recorded. Imaging Results Imaging Date Name Status LastModified by Organization Details LastModified Time 12/03/2023 MAMMO, screening, digital, bilateral completed INTERFACE Sc Only - [facility] [address] [place] [address], [id number], 12/17/2023 15:54:54 07/19/2022 MAMMO, screening, tomosynthesis, bilateral completed [email or web address] Information not available 12/18/2023 16:06:37 06/22/2024 US, pelvis completed rholck Sc Only - Sc Radiology [address] [place] [address], [id number], 06/22/2024 12:56:26 06/22/2024 US, transvaginal completed [place]holck [place] Only - [place] [facility] [address] [place] [address], [id number], 06/22/2024 12:56:26 Procedure Notes None recorded. Medical Equipment None Reported. Allergies Allergen ID Allergen Name Allergen Category Reaction Reaction Severity Criticality Documentation Date Start Date Code Code System Note Provider Name and Address Organization Details Recorded Time [id number] vitamin B12 medicatio n hives Not available low 11/28/2023 30815 RxNorm Not Available Not Available Not Available [...] % 110 mm[Hg] 60 mm[Hg] Cornelia Duarte, BUILDING RENTAL SUPERINTENDENT, SOCK LINER [address] [place] [address], [phone] , [facility] 4 16:54:19 Social History Question Answer Notes [...] SNOMED-CT Code Diagnosis ICD10 Code Diagnosis Note [id number] Zulema Jerez MD [facility] 2nd Gastroent erology ([place]) [address] [facility] [place] [address] 11/28/2023 16:41:05 11/28/2023 17:38:22 Health Concerns Section Related Observation LastModified by Organization Detai ls LastModified Time None Recorded Concern Status LastModified by Organization Details LastModified Time None Recorded Advance Directives Directive None Recorded Payers Encounter Date Sequence Insurance Name Policy Number Policy Senior Covered Member ID Senior Member ID Guarantor Name 11/28/2023 2 [facility] (MEDICARE REPLACEMENT/ ADVANTAGE - HMO) Iraida Cameronford [id number] Iraida Shah Notes Date Note Type Note [...] or weight and no fever. Cornelia Duarte, BUILDING RENTAL SUPERINTENDENT, SOCK LINER [address] [place] [address], [phone], [employer] 11/28/2023 17:37:05 OBGyn Episode No OBEpisode recorded.
--- OUTSIDE RECORDS SUMMARY | 2024-07-23 00:29 | XMS_ITS | Clinical Summary ---
Author Organization [facility] Address [address] [place] [address] Care Team Providers Care Home Supervisor Name Role Phone Emanuel Sales MD Primary Care Provider [phone] Source Comments [facility],non-owned Affiliates and Associated Physician Practices is amultiple site organization consisting of ambulatory clinics and hospital sitesin [place], [place], [place] and [place]. This disclosure is being madepursuant to the Care Everywhere program and may not contain all information available regarding this patient. Last updated 18.[facility] [employer] Social History Tobacco Use Types Packs/Day Years [...] age to complete this topic Care Teams Home Supervisor Relationship Specialty Start Date End Date Emanuel Sales MD [address] [place], [place] [id number] PCP - General 11/06/21
--- NOTE | 2024-07-23 07:14 | WPDHPUPDATE1 ---
History and Physical Update Update Date/Time: 07/23/24 07:14 History and Physical has been reviewed, including an updated exam of the patient. There are NO changes in the patient's condition. Risks, benefits, and alternatives have been discussed and questions answered. Patient agrees to proceed with procedure.
[2024-07-23] MEDS: LACTATED RINGERS 1,000 ML 30 ML IV CONT ×2 (08:15→11:22)
[2024-07-23] MEDS: ACETAMINOPHEN 500 MG TABLET 1000 MG PO ×3 (08:57→21:22)
[2024-07-23] MEDS: KETOROLAC 15 MG/ML VIAL (*BKC) IV PUSH (08:57)
--- NOTE | 2024-07-23 08:57 | WPDANESEPPF ---
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 Patient Data Age: 49 Gender: F Height: 1.68 m Weight: 82 kg Last Vital Signs Temp 97.9 F 07/23/24 08:15 Pulse 75 07/23/24 08:15 Resp 16 07/23/24 08:15 BP 127/73 07/23/24 08:15 Pulse Ox 100 07/23/24 08:15 O2 Del Method Room Air 07/23/24 08:15 Allergies Allergy/AdvReac Type Severity Reaction Status Date / Time vitamin B 12 Allergy Intermediate Hives Uncoded 07/09/24 12:22 Home Medications ?Medication ?Instructions ?Recorded ?Confirmed ?Type valacyclovir 500 mg tablet 500 mg PO DAILY PRN herpes 05/10/19 07/23/24 History atorvastatin 10 mg tablet 10 mg PO DAILY 04/09/20 07/23/24 History bupropion HCl 300 mg 24 hr tablet, 300 mg PO DAILY 04/09/20 07/23/24 History extended release citalopram 20 mg tablet 20 mg PO DAILY 04/09/20 07/23/24 History hydrochlorothiazide 12.5 mg tablet 12.5 mg PO DAILY 06/16/24 07/23/24 History atogepant 60 mg tablet (Qulipta) 60 mg PO DAILY 07/09/24 07/23/24 History trazodone 50 mg tablet 50 mg PO HS 07/09/24 07/23/24 History Patient hx anesthesia problems: none Family hx anesthesia problems: none Results Review: All pre-operative results and documents have been reviewed as part of the pre-operative evaluation. [facility] Past Medical History Medical History Screening mammogram, encounter for Hx of migraines Encounter for screening examination for sexually transmitted disease Anxiety History of PCR DNA positive for HSV2 Hypercholesterolemia HTN (hypertension) Surgical History Surgical History History of hysteroscopy (03/08/22) hscope D&C / endometrial ablation History of hysteroscopy (11/02/21) Hscope D&C Status post surgical removal of both fallopian tubes Family History Family History Other Adopted Social History Social History Smoking status: Never smoker Alcohol intake: never Substance use: never Substance use type: does not use Do You Feel Safe in your Home?: Yes Lack of Transportation: No Lack of Food: Never True Current Housing: I Have Housing Concerned About Future Housing: No Difficulty Paying Gas/Electric Bills: No Difficulty Paying for Meds: No Currently Unemployed: YES Education: High School Diploma/GED Difficulty w/ Childcare or Family Care: No Living arrangements: other Additional living arrangements comments: Occupation/Education: occupation 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 ) Neurological: alert and oriented Last oral intake: >/= 8 hours ASA classification: II Emergent: no Anesthetic plan: proceed Anesthesia type and monitoring: general ETT and standard monitoring Results Review: All pre-operative results and documents have been reviewed as part of the pre-operative evaluation. HTN, hyperlipidemia. Pt was sipping water in waiting room at 7 am, she confirms no solids. Informed Consent: The patient's anesthetic plan and its attendant risks and benefits were discussed with the patient/family/POA. Questions were solicited and answers provided to the satisfaction of the patient/family/POA.
[2024-07-23] MEDS: ceFAZolin 2 GM/D5W 50 ML 2 GM/50 ML BAG IVPB (09:43)
--- NOTE | 2024-07-23 11:10 | W.PM.PROC2 ---
Procedure Note - Detailed Date of Procedure 07/23/24 Pre-op Diagnosis 1. Post endometrial ablation syndrome 2. Enlarged uterus Post-op Diagnosis Same Procedure Performed 1. Robotic assisted total laparoscopic hysterectomy with right salpingectomy Surgeon Leoncio Hammond MD Anesthesia General Findings 1. Uterus enlarged and globular 2. Left tube and ovary surgically absent 3. Right fallopian tube partially absent Description of Procedure Patient prepped and draped usual manner for this procedure. Cervical instruments were placed for uterine mobility throughout the case. Abdominal trocar sites were marked and placed under direct visualization. [employer] Charbel system was attached and the instruments were placed again under direct visualization. Patient moved to the console. The left tube and ovary surgically absent right ovary was without abnormality and partial right tube was noted. This segment of tube was removed without difficulty. Round ligament bilaterally caused and cut bladder flap developed without difficulty. Posterior leaf the broad ligament was also incised to skeletonize the uterine vessels. These were then cauterized and cut. Anterior colpotomy incision was made this was carried circumferentially around the cervix to separate the cervix from the vagina. Uterus was delivered into the vagina without difficulty. Vaginal cuff was then closed using V lock suture from the right angle to the midline in the left angle midline with good approximation hemostasis noted. Irrigation is undertaken, there was no bleeding. Hematomas placed empirically over the vaginal cuff. Gas was allowed to escape incisions approximated using 4-0 Monocryl after the trocars had been removed. Patient was then sent to recovery room in stable condition. Estimated Blood Loss 100 Drains No Packing No Pathology Yes Complications No immediate complications Condition Stable Disposition PACU [facility] Billing Surgery - Charge Forward: Surgery Billing
[2024-07-23] MEDS: fentaNYL CITRATE INJ (*CRX) 100 MCG/2 ML VIAL 25 MCG IV PUSH ×4 (11:35→12:20)
[2024-07-23] MEDS: SIMETHICONE 80 MG TAB.CHEW PO (13:01)
[2024-07-23] MEDS: DEXTROSE 5%/0.45% SOD CHL 1,000 ML 125 ML IV CONT (13:03)
[2024-07-23] MEDS: oxyCODONE HCL (*CRX) 5 MG TAB IR 10 MG PO (13:11)
[2024-07-23] MEDS: KETOROLAC 30 MG/ML VIAL (*BKC) IV PUSH ×2 (15:20→21:20)
[2024-07-23] MEDS: traZODone HCL 50 MG TABLET PO (21:23)
[2024-07-23] MEDS: guaiFENesin/DEXTROMETHORPHAN 10 ML UDC 5 ML PO (21:30)
[2024-07-24 00:18] VITALS: BP 99/57; PULSE 66; RESP 14; TEMP 36.6; O2SAT 98
[2024-07-24] MEDS: KETOROLAC 30 MG/ML VIAL (*BKC) IV PUSH (03:40)
[2024-07-24] MEDS: ACETAMINOPHEN 500 MG TABLET 1000 MG PO (03:40)
[2024-07-24 03:45] VITALS: BP 122/69; PULSE 69; RESP 14; TEMP 36.6; O2SAT 98
[2024-07-24 06:36] LABS: Basophils Percent Auto 0.3 % (0.2-1.2); Hematocrit 36.6 % (37.0-47.0); Hemoglobin 12.2 g/dL (12.0-15.0); Immature Granulocyte Absolute 0.08 K/mm3 (0.00-0.031); Immature Granulocyte Percent A 0.5 % (0-0.5); Lymphocytes Absolute Auto 2.01 K/mm3 (0.9-3.2); Lymphocytes Percent Auto 13.1 % (18.3-44.2); Mean Corpuscular HGB Conc 33.3 g/dl (32-36); Mean Corpuscular Hemoglobin 33.1 pg (26-34); Mean Corpuscular Volume 99.2 fl (80-100); Mean Platelet Volume 9.6 fl (7.4-10.4); Monocytes Absolute Auto 0.8 K/mm3 (0.1-0.6); Neutrophils Absolute Auto 12.5 K/mm3 (1.3-6.7); Neutrophils Percent Auto 81.1 % (45.5-73.1); Platelet Count Result 317 k/mm3 (150-375); Red Blood Count 3.69 M/mm3 (4.2-5.4); Red Cell Distribution Width 12.6 % (11.5-14.5); White Blood Count 15.4 K/mm3 (4.5-10.0)
[2024-07-24] MEDS: SIMETHICONE 80 MG TAB.CHEW PO (07:35)
[2024-07-24] MEDS: DOCUSATE SODIUM 100 MG CAPSULE PO (07:35)
[2024-07-24] MEDS: ATORVASTATIN 10 MG TABLET PO (07:43)
[2024-07-24] MEDS: buPROPion HCL XL (24 HR) 150 MG TABCR 300 MG PO (07:43)
[2024-07-24] MEDS: hydroCHLOROthiazide 12.5 MG CAPSULE PO (07:44)
[2024-07-24] MEDS: CITALOPRAM HYDROBROMIDE 20 MG TABLET PO (07:44)
[2024-07-24 07:50] VITALS: BP 118/65; PULSE 60; RESP 16; TEMP 36.4; O2SAT 98
== END 2024-07-24 08:45 | disposition home or self-care (01) ==
LOC: ANHSURGERY 07:43 → ANHOB2 13:45
PROVIDERS: Visit Provider Obstetrics & Gynecology
PROC: (CPT 58571; principal; 2024-07-23 09:30)
DX: N80.03 Adenomyosis of the uterus (principal); N80.00 Endometriosis of the uterus, unspecified; G89.18 Other acute postprocedural pain; I10 Essential (primary) hypertension; E78.00 Pure hypercholesterolemia, unspecified; F41.9 Anxiety disorder, unspecified; Z98.890 Other specified postprocedural states; Z98.891 History of uterine scar from previous surgery
CPT/HCPCS: 58571; S2900; 36415; 85025; 88307; 99199; A9270; J0690; J1100; J1885; J2250; J2405; J2704; J3010; J7030; J7120